=== PATIENT | male | born 1935 | race Caucasian/White ===

== ENCOUNTER 2018-01-14 22:30 | Inpatient (IN) | payer MEDICARE ==
[~2018-01-14 22:30] MED LIST: Aminocaproic Acid 5 GM/20 ML VIAL ONE; Calcium Chloride 1 GM/10 ML Abboject SYRINGE ONE; Cardioplegic Soln 1,000 ML BAG ONE; Heparin 30,000 units/30 ml VIAL ONE; Heparin 5,000 UNITS/ML VIAL ONE; Lidocaine 2% PF 100 mg/5 ml Syringe ONE; Magnesium 5 GM/10 ML VIAL ONE; Nitroglycerin 50 MG/250 ML BOT ONE; Norepinephrine 4 MG/4 ML VIAL ONE; Papaverine 60 MG/2 ML VIAL ONE; Potassium Chloride 60 MEQ/30 ML VIAL ONE; Protamine Sulfate 250 MG/25 ML VIAL ONE; Sodium Bicarb 50 MEQ/50 ML VIAL ONE; Thrombin 5000 UNITS/5 ML VIAL ONE
[2018-01-14] MEDS ORDERED: Nitroglycerin 2% Ointment 1 INCH/1 GM Packet ONE (22:41)
--- NOTE | 2018-01-14 22:49 | RAD ---
SINGLE VIEW OF THE CHEST: 01/14/18 COMPARISON: 02/14/17 HISTORY: Chest pain that began this evening. FINDINGS: Single view of the chest shows a normal sized cardiomediastinal silhouette. There is no evidence of c onsolidation, mass, or pleural effusion. The bones are unremarkable. IMPRESSION: No evidence of acute cardiopulmonary disease. POS: [facility]
[2018-01-14 22:54] LABS: #Eosinphils 0.3 thou/uL (0.0-0.7); #Lymphocytes 1.3 thou/uL (1.20-3.40); #Monocytes 0.8 thou/uL (0.11-0.59); #Neutrophils 7.1 thou/uL (1.40-6.50); %Basophils 0.3 % (0.0-1.0); %Eosinophils 3.3 % (0.0-10.0); %Lymphocytes 13.5 % (21.0-51.0); %Monocytes 8.3 % (0.0-10.0); %Neutrophils 74.6 % (42.0-75.0); Hemoglobin 13.9 g/dL (14.0-18.0); Mean Corpuscular HGB CONC 34.7 g/dL (32.0-36.0); Mean Corpuscular Hemoglobin 31.6 pg (27.0-31.0); Platelet Count 160 thou/uL (130-400); RBC Distribution Width 11.5 % (11.5-14.5); Red Blood Cell (RBC) Count 4.39 mill/uL (4.70-6.10); White Blood Cell (WBC) Count 9.6 thou/uL (4.8-10.8)
[2018-01-14 23:13] LABS: ALT (SGPT) Less than 7 U/L (8-55); AST (SGOT) 15 U/L (5-34); Alkaline Phosphatase 85 U/L (40-150); Anion Gap 14 mmol/L (10-20); BUN (Urea Nitrogen) 14 mg/dL (8.4-25.7); Bilirubin, Total 0.4 mg/dL (0.2-1.2); CK (CPK) 125 U/L (30-200); Calc. Creatinine Clearance 0 mL/min (70-130); Calcium 9.9 mg/dL (7.8-10.44); Carbon Dioxide 22 mmol/L (23-31); Chloride 105 mmol/L (98-107); Estimated GFR-MDRD 70; Globulin 2.7 g/dL (2.4-3.5); Glucose 290 mg/dL (83-110); Lipase 35 U/L (8-78); Magnesium 1.9 mg/dL (1.6-2.6); Potassium 3.9 mmol/L (3.5-5.1); Protein, Total 6.7 g/dL (5.8-8.1); Sodium 137 mmol/L (136-145)
[2018-01-14 23:16] LABS: CKMB 4.7 ng/mL (0-6.6)
[2018-01-14 23:18] LABS: Bilirubin Negative (Negative); Blood, Urine Negative (Negative); Clarity CLEAR (Clear); Glucose, Urine (Dipstick) >=1000 mg/dL (Negative); Leukocyte Negative (Negative); Nitrite Negative (Negative); Protein, Urine (Dipstick) Negative (Neg-Trace); Specific Gravity, Urine 1.015 (1.002-1.036); Urobilinogen 0.2 mg/dL (0.2-1.0); pH, Urine 7.5 (5.0-9.0)
[2018-01-14 23:22] LABS: Troponin I 0.578 ng/mL (< 0.028)
[2018-01-14] MEDS ORDERED: Enoxaparin Sodium 80 MG/0.8 ML SYRINGE ONE (23:48)
[2018-01-15 02:42] LABS: Troponin I 9.368 ng/mL (< 0.028)
[2018-01-15 05:42] LABS: Troponin I 21.042 ng/mL (< 0.028)
[2018-01-15] MEDS ORDERED: Lidocaine 1% (PF) 30 ML VIAL ONE (07:13)
[2018-01-15] MEDS ORDERED: Aggrastat 12.5 MG/250 ML 250 ML ONE (08:01)
[2018-01-15] MEDS ORDERED: Dexmedetomidine 200 MCG/2 ML VIAL ONE (08:13)
[2018-01-15] MEDS ORDERED: Midazolam HCl 5 mg/5 ml Vial ONE (08:13)
[2018-01-15] MEDS ORDERED: Fentanyl 100 MCG/2 ML VIAL ONE (08:13)
[2018-01-15] MEDS ORDERED: Vecuronium 10 MG VIAL ONE (08:13)
[2018-01-15] MEDS ORDERED: Nitroglycerin 100MG/250ML BOT IV SCH (09:00)
[2018-01-15] MEDS ORDERED: Nitroglycerin 2% Ointment 1 INCH/1 GM Packet TOP SCH (09:00)
[2018-01-15] MEDS ORDERED: Aggrastat 12.5 MG/250 ML 250 ML IVPB SCH (09:00)
[2018-01-15] MEDS ORDERED: Sodium Chloride 0.9% 1,000 ML IV SCH (09:00)
[2018-01-15] MEDS ORDERED: Prevnar 13-Val Conj/PF 0.5 ML SYRINGE IM ONE (09:00)
--- NOTE | 2018-01-15 09:12 | CON ---
DATE OF CONSULTATION: 01/15/2018 CARDIOLOGY CONSULTATION REASON FOR CONSULTATION: Non-STEMI. HISTORY OF PRESENT ILLNESS: Mr. Thomson is a pleasant 82-year-old white gentleman who comes to the ospital for chest pain started yesterday at 4:00 p.m., came in by EMS. There were some ST changes on the EKG suggestive of global process. He had Q's in the inferior waves which were new. He was admi tted and troponin up trended overnight. He was pain free yesterday evening. This morning, he again had episode of chest pain about 6:00 a.m. in the upper chest and troponins have bumped to 21, so I ca me in emergently to see him at that time because he was having ongoing pain and elevated troponins an d I brought him down to the catheterization lab in an emergent fashion. He was found to have severe multivessel disease. His culprit vessel was the right coronary artery with a thrombus in the mid ves swetha. This is nonocclusive and actually there is flow past the vessel secondary to this. Dr. Thad arguelles CT Surgery was called and saw the films emergently. We decided to wait until tomorrow to cool hi m off a little and then do this tomorrow morning in a more controlled setting. Currently, at the end of heart catheterization, he is chest pain free. PAST MEDICAL HISTORY: 1. Hypertension. 2. Hyperlipidemia. 3. Type 2 diabetes. 4. Parkinson's disease. PAST SURGICAL HISTORY: Hernia repair. SOCIAL HISTORY: Drinks socially a glass of wine a week. No drug use. No smoking history. OUTPATIENT MEDICATIONS: 1. Carbidopa/levodopa. 2. Losartan 25 mg twice a day. 3. Glipizide 10 mg a day. 4. Hydrochlorothiazide 12.5 mg a day. 5. Metformin 500 mg daily. 6. Calcium with vitamin D. 7. Atorvastatin 40 mg a day. 8. Donepezil 5 mg a day. 9. Aspirin 81 a day. ALLERGIES: No known drug allergies. FAMILY HISTORY: Noncontributory. REVIEW OF SYSTEMS: A 12 point review of systems was done and it is all negative unless stated in the history of present illness. PHYSICAL EXAMINATION: VITAL SIGNS: Temperature 97.7, pulse 65, respiration rate 17, satting 98% on 2 liters, blood pressur e 138/68. GENERAL: Awake, alert and oriented x3, no distress. HEENT: Normocephalic, atraumatic. NECK: Supple. LUNGS: Clear. CARDIOVASCULAR: S1 and S2, no S3, S4, no murmurs. ABDOMEN: Soft, positive bowel sounds. EXTREMITIES: No edema. SKIN: Warm and dry. LABORATORY DATA: Laboratory work was reviewed. White count of 9, hemoglobin of 13.9, hematocrit of 40 and platelet count of 160. Chemistries were reviewed and unremarkable. GFR was 70, troponin init ially at 0.5, then 9.3, now 21, CK-MB 4.7 on admission. Lipase normal and albumin of 4.0. UA was un remarkable. IMAGING DATA: EKG was reviewed, which shows Q-waves in the inferior leads. There is about 0.5 mm to [address] elevation in the inferior leads with high lateral reciprocal changes. Chest x-ray, no evidence of acute cardiopulmonary disease. ASSESSMENT AND PLAN: 1. Non-ST elevation myocardial infarction. 2. Multivessel coronary artery disease. 3. Type 2 diabetes. 4. Hypertension. 5. Hyperlipidemia. PLAN: 1. Currently, best way to revascularize is with bypass surgery. He is currently pain free. Dr. Harriet gonzalez has already reviewed the films and plan is to perform this tomorrow morning. 2. We will start Aggrastat with aspirin for dual antiplatelet therapy. 3. Continue subcu Lovenox for full anticoagulation. 4. We will transfer to the ICU for closer monitoring. 5. Continue statin and aspirin. Thank you for letting us to participate in the care of your patient. We will follow. Over 30 minutes of critical care time were delivered at bedside.
[2018-01-15] MEDS ORDERED: Aspirin 325 MG TAB PO SCH (09:15)
[2018-01-15] MEDS ORDERED: Morphine 4 MG/ML VIAL SLOW IVP PRN (09:15)
[2018-01-15] MEDS ORDERED: Communication Order-Pharmacy FS ONE (09:26)
[2018-01-15] MEDS ORDERED: Nitroglycerin 50 MG/250 ML BOT IVPB SCH (09:30)
[2018-01-15 09:44] LABS: Hemoglobin A1c 7.1 % (4.0-6.0)
--- NOTE | 2018-01-15 11:25 | CON ---
DATE OF CONSULTATION: 01/15/2018 HISTORY OF PRESENT ILLNESS: This is an 82-year-old gentleman, who has been having chest pain for the previous month. He had some discomfort about 12 hours prior to admission that he described as mild; however, became more severe and he presented to the emergency room on around midnight. The followin g morning, he was noted to have a troponin I and was taken to the [facility] for catheterization, which showed triple vessel disease. Left ventricular systolic function appeared overall intact. The anthony ent was not having any chest discomfort at the time of completion of the catheterization. He does soni ve a history of diabetes mellitus, dyslipidemia, hypertension, and Parkinson's disease. He lives in assisted living. He is single. PAST SURGICAL HISTORY: Includes only a hernia repair. MEDICATIONS: Prior to admission included pantoprazole 40 a day, Sinemet 4.5 tablets p.o. t.i.d., asp irin 81 a day, Lipitor 40 at bedtime, hydrochlorothiazide 12.5 a day, Aricept 5 mg at bedtime, glipiz michael 10 mg a day, losartan 25 b.i.d., and metformin 500 every morning. ALLERGIES: None known. PHYSICAL EXAMINATION: VITAL SIGNS: Beverley 511, weight 169. Blood pressure 130/70, heart rate 70. NECK: No carotid bruits. LUNGS: Clear to auscultation. CARDIAC: Regular rate and rhythm. No murmurs. ABDOMEN: Soft, nontender. EXTREMITIES: He has palpable pedal pulses with no peripheral edema. Potential targets include the distal right coronary artery. The PDA is diffusely diseased and too sm all to graft. The circumflex system has a proximal lesion prior to two obtuse marginals, the first o f which has about a 60% stenosis and it is bypassable and possibly the second OM. The LAD is diffuse ly and severely diseased proximally and then at the takeoff of the diagonal, there is some severe shaina nosis involving both of these vessels. There may be some calcification in the distal LAD, but the LA D diagonal appeared to be targets. PLAN: At this time is for coronary bypass grafting tomorrow and informed consent has been obtained.
[2018-01-15] MEDS ORDERED: Iopamidol 370 76% 100 ML VIAL ONE (12:09)
[2018-01-15 12:10] LABS: #Eosinphils 0.2 thou/uL (0.0-0.7); #Lymphocytes 0.9 thou/uL (1.20-3.40); #Monocytes 0.9 thou/uL (0.11-0.59); #Neutrophils 8.3 thou/uL (1.40-6.50); %Basophils 0.4 % (0.0-1.0); %Eosinophils 1.8 % (0.0-10.0); %Lymphocytes 8.9 % (21.0-51.0); %Monocytes 8.5 % (0.0-10.0); %Neutrophils 80.3 % (42.0-75.0); Mean Corpuscular HGB CONC 34.3 g/dL (32.0-36.0); Mean Corpuscular Volume 90.4 fl (80.0-94.0); Platelet Count 168 thou/uL (130-400); RBC Distribution Width 11.6 % (11.5-14.5); Red Blood Cell (RBC) Count 4.19 mill/uL (4.70-6.10); White Blood Cell (WBC) Count 10.3 thou/uL (4.8-10.8)
[2018-01-15 12:33] LABS: Troponin I 41.696 ng/mL (< 0.028)
[2018-01-15] MEDS ORDERED: Enoxaparin Sodium 80 MG/0.8 ML SYRINGE SC SCH ×2 (13:45→21:00)
[2018-01-15] MEDS ORDERED: Enoxaparin Sodium 40 MG/0.4 ML SYRINGE SC SCH (13:45)
[2018-01-15 15:12] LABS: #Eosinphils 0.1 thou/uL (0.0-0.7); #Neutrophils 8.3 thou/uL (1.40-6.50); %Basophils 0.1 % (0.0-1.0); %Lymphocytes 9.1 % (21.0-51.0); %Monocytes 9.8 % (0.0-10.0); Hemoglobin 12.8 g/dL (14.0-18.0); Mean Corpuscular HGB CONC 34.2 g/dL (32.0-36.0); Mean Corpuscular Hemoglobin 30.8 pg (27.0-31.0); Mean Platelet Volume 6.6 fL (7.4-10.4); Platelet Count 170 thou/uL (130-400); RBC Distribution Width 11.5 % (11.5-14.5); Red Blood Cell (RBC) Count 4.16 mill/uL (4.70-6.10); White Blood Cell (WBC) Count 10.4 thou/uL (4.8-10.8)
[2018-01-15] MEDS ORDERED: Losartan 25 MG TAB PO SCH (15:15)
[2018-01-15] MEDS: Carbidopa/Levodopa 25-100 mg Tablet PO SCH ×2 (15:33→20:47)
[2018-01-15] MEDS ORDERED: Hydrochlorothiazide 25 MG TAB PO SCH (16:15)
--- NOTE | 2018-01-15 17:01 | HP ---
DATE OF ADMISSION: 01/15/2018 PRIMARY CARE PHYSICIAN: Dr. Benitez Fine CHIEF COMPLAINT: Chest pain. HISTORY OF PRESENT ILLNESS: This is an 82-year-old male patient of Dr. Benitez Fine with a history of hypertension, Parkinson's, hyperlipidemia, type 2 diabetes who presented to the emergency [facility] last night with complaints of chest pain. The patient states that the pain started about 4:00 p.m . and progressively worsened and presented to the emergency department, found to have slightly elevat ed cardiac enzymes and abnormal EKG. Throughout the night of troponins, continued to elevate, his pa in persisted and Dr. Laura was noted this morning and had a cardiac catheterization early this morni ng which was globally abnormal. Of note, the family states that he has had about 1 week of worsening orthopnea where he gets short of breath when he lay down. The family thought it was reflux and he w as started on proton pump inhibitor with little relief of his symptoms. Symptoms persisted and so he developed chest pain yesterday which eventually brought him to the emergency department for evaluati on. PAST MEDICAL HISTORY: Hypertension, hyperlipidemia, type 2 diabetes, Parkinson's. PAST SURGICAL HISTORY: Hernia repair. MEDICATIONS: Include losartan 25 mg b.i.d., glipizide 10 mg daily, hydrochlorothiazide 12.5 mg daily , metformin 500 mg daily, atorvastatin 40 mg daily, donepezil 5 mg daily, carbidopa/levodopa daily, a spirin 81 mg daily. ALLERGIES: None known. FAMILY HISTORY: Positive for siblings with heart disease as well as nephews with heart disease. SOCIAL HISTORY: He lives at [facility]. He quit smoking back in 1972. No alcohol, no drug use. REVIEW OF SYSTEMS: As per the history of present illness. GENERAL: Denies any recent fevers, chills or recent illness. HEENT: No headache, visual or hearing changes. CARDIAC: As per the history of present illness. PULMONARY: Positive cough from lisinopril. GASTROINTESTINAL: No nausea, vomiting, abdominal pain, melena, hematochezia. GENITOURINARY: No dysuria or hematuria. NEUROLOGIC: Positive tremor from Parkinson's. PHYSICAL EXAMINATION: VITAL SIGNS: Temperature 98.4, pulse 85, respirations 17-22, blood pressure 176/78, pulse ox 97% on room air. GENERAL: He is awake and alert, in no acute distress. Speech is clear. NECK: Supple, no JVD, adenopathy or bruits. HEART: Regular rate and rhythm with no murmurs. LUNGS: Clear. No wheeze, rales or rhonchi. ABDOMEN: Soft, nontender, nondistended. EXTREMITIES: No clubbing, cyanosis or edema, 2+ peripheral pulses bilaterally. LABORATORY DATA: White blood cell count 10.4 thousand, hemoglobin hematocrit 12.8 and 37.4, platelet s of 170. Sodium 137, potassium 3.9, chloride 105, CO2 22, BUN and creatinine 14 and 1.02 with a GFR of 70. Serum glucose was 290. Accu-Cheks 138, 127, AST and ALT are normal. Troponin I initially w as 0.578, next was 9.368, next was 21.04, and next was 41.69. Echocardiogram is pending. Chest x-ra y revealed no evidence of acute cardiopulmonary disease. Again, slab puller revealed abnormal LAD with 90% stenosis. The mid LAD, left circumflex with 70% stenosis, RCA with 99% stenosis. ASSESSMENT AND PLAN: 1. This is an 82-year-old gentleman with multiple medical problems including hypertension, hyperlipi demia, type 2 diabetes, now with a 5-vessel coronary artery disease on heart catheterization. Dr. Jackeline kirkpatrick following. He has planned on 4-5 vessel bypass tomorrow by Dr. Oneil. 2. Type 2 diabetes. We will continue insulin sliding scale while he is n.p.o. 3. Hypertension. I will monitor closely. Dr. Laura adjusting his medications. 5. Parkinson's. We will continue his oral medications and follow closely.
[2018-01-15] MEDS ORDERED: Atorvastatin Calcium 40 MG TAB PO SCH (21:00)
[2018-01-15 21:04] LABS: #Eosinphils 0.2 thou/uL (0.0-0.7); #Lymphocytes 1.3 thou/uL (1.20-3.40); #Monocytes 1.3 thou/uL (0.11-0.59); #Neutrophils 7.4 thou/uL (1.40-6.50); %Basophils 0.1 % (0.0-1.0); %Eosinophils 2.3 % (0.0-10.0); %Lymphocytes 12.5 % (21.0-51.0); %Monocytes 12.3 % (0.0-10.0); %Neutrophils 72.7 % (42.0-75.0); Hemoglobin 13.5 g/dL (14.0-18.0); Mean Corpuscular HGB CONC 33.7 g/dL (32.0-36.0); Mean Corpuscular Hemoglobin 30.8 pg (27.0-31.0); Mean Corpuscular Volume 91.4 fl (80.0-94.0); Mean Platelet Volume 6.6 fL (7.4-10.4); Platelet Count 178 thou/uL (130-400); RBC Distribution Width 11.7 % (11.5-14.5); Red Blood Cell (RBC) Count 4.38 mill/uL (4.70-6.10); White Blood Cell (WBC) Count 10.2 thou/uL (4.8-10.8)
[2018-01-16] MEDS ORDERED: Enoxaparin Sodium 80 MG/0.8 ML SYRINGE SC SCH
[2018-01-16] MEDS: Carbidopa/Levodopa 25-100 mg Tablet PO SCH ×3 (04:05→21:14)
[2018-01-16 04:06] LABS: #Eosinphils 0.3 thou/uL (0.0-0.7); #Lymphocytes 1.1 thou/uL (1.20-3.40); #Neutrophils 5.7 thou/uL (1.40-6.50); %Eosinophils 3.2 % (0.0-10.0); %Lymphocytes 13.5 % (21.0-51.0); %Monocytes 12.4 % (0.0-10.0); %Neutrophils 70.8 % (42.0-75.0); Hemoglobin 12.7 g/dL (14.0-18.0); Mean Corpuscular HGB CONC 34.5 g/dL (32.0-36.0); Mean Corpuscular Hemoglobin 31.3 pg (27.0-31.0); Mean Corpuscular Volume 90.7 fl (80.0-94.0); Mean Platelet Volume 6.8 fL (7.4-10.4); Platelet Count 168 thou/uL (130-400); RBC Distribution Width 11.8 % (11.5-14.5); Red Blood Cell (RBC) Count 4.05 mill/uL (4.70-6.10); White Blood Cell (WBC) Count 8.1 thou/uL (4.8-10.8)
[2018-01-16 04:15] LABS: ALT (SGPT) Less than 7 U/L (8-55); AST (SGOT) 35 U/L (5-34); Albumin 3.7 g/dL (3.4-4.8); Alkaline Phosphatase 70 U/L (40-150); Anion Gap 11 mmol/L (10-20); BUN (Urea Nitrogen) 11 mg/dL (8.4-25.7); Bilirubin, Total 0.9 mg/dL (0.2-1.2); Calc. Creatinine Clearance 92 mL/min (70-130); Calcium 9.4 mg/dL (7.8-10.44); Carbon Dioxide 27 mmol/L (23-31); Chloride 104 mmol/L (98-107); Estimated GFR-MDRD Greater than 90; Globulin 2.5 g/dL (2.4-3.5); Glucose 136 mg/dL (83-110); Potassium 3.8 mmol/L (3.5-5.1); Protein, Total 6.2 g/dL (5.8-8.1); Sodium 138 mmol/L (136-145)
[2018-01-16] MEDS ORDERED: Heparin 10,000 UNITS/1 ML VIAL 30,000 UNITS in Sodium Chloride 0.9% 1,000 ML FS SCH (06:30)
[2018-01-16] MEDS ORDERED: Fentanyl 250 MCG/5 ML VIAL ONE ×2 (06:38)
[2018-01-16] MEDS ORDERED: Midazolam HCl 5 mg/5 ml Vial ONE (06:38)
[2018-01-16] MEDS ORDERED: Vecuronium 10 MG VIAL ONE ×2 (06:39→16:11)
[2018-01-16] MEDS ORDERED: Dexmedetomidine 200 MCG/2 ML VIAL ONE (06:39)
[2018-01-16] MEDS ORDERED: Albumin 5% 500 ML ONE (06:50)
[2018-01-16] MEDS ORDERED: Aspirin 325 MG TAB PO SCH (09:00)
[2018-01-16] MEDS ORDERED: PHENYLEPHRINE-NS 100 MCG/ML 10 ML SYRINGE ONE ×2 (09:37→16:11)
[2018-01-16] MEDS ORDERED: Insulin Regular 300 UNITS/3 ML VIAL ONE (09:37)
[2018-01-16] MEDS ORDERED: Bisacodyl 5 MG TAB PO PRN (11:43)
[2018-01-16] MEDS ORDERED: Post-Op Insulin Drip Protocol IVPB ONE (11:43)
[2018-01-16] MEDS ORDERED: Ondansetron HCl/PF 4 MG/2 ML Vial IVP PRN (11:43)
[2018-01-16] MEDS ORDERED: Phenylephrine 10 MG/NS 250 ML 250 ML IVPB PRN (11:43)
[2018-01-16] MEDS ORDERED: Fentanyl 100 MCG/2 ML VIAL SLOW IVP PRN ×2 (11:43)
[2018-01-16] MEDS ORDERED: DOPamine 400 MG/D5W 250 ML 250 ML IVPB PRN (11:43)
[2018-01-16] MEDS ORDERED: Morphine 4 MG/ML VIAL SLOW IVP PRN (11:43)
[2018-01-16] MEDS ORDERED: Bisacodyl 10 MG SUPP PR PRN (11:43)
[2018-01-16] MEDS ORDERED: niCARdipine HCl 25 MG in Sodium Chloride 0.9% 250 ML 240 ML IVPB PRN (11:43)
[2018-01-16] MEDS ORDERED: Nitroglycerin 50 MG/250 ML BOT 250 ML IVPB PRN (11:43)
[2018-01-16] MEDS ORDERED: Acetaminophen 325 MG TAB PO PRN (11:43)
[2018-01-16] MEDS ORDERED: Mag-Al 1200 mg/1200 mg/30 ML UDCUP PO PRN (11:43)
[2018-01-16] MEDS ORDERED: Hetastarch 6% 500 ML 500 ML IVPB PRN (11:43)
[2018-01-16] MEDS ORDERED: Guaifenesin DM 100-10/5 ML UDCUP PO PRN (11:43)
[2018-01-16] MEDS ORDERED: hydrALAZINE 20 MG/ML VIAL SLOW IVP PRN (11:43)
[2018-01-16] MEDS ORDERED: Norepinephrine 8 MG/0.9% NS 250 ML IVPB PRN (11:43)
[2018-01-16] MEDS ORDERED: HYDROcodone/Acetaminophen 5/325 mg Tablet PO PRN (11:43)
[2018-01-16] MEDS ORDERED: Potassium Chloride 20 MEQ/100 ML PREMIX BAG IVPB PRN (11:43)
[2018-01-16 11:44] LABS: pH, Arterial 7.38 (7.35-7.45)
[2018-01-16 11:45] LABS: ALV-art Gradient 289.275 (0-20); Actual Bicarbonate (HCO3a) 22.7 mEq/L (22-26); Base Excess (BEa) -2.2 mEq/L (0 (+/-) 2.5); CO2 Tension 39.7 mmHg (35.0-45.0); Calcium, Ionized 1.1 mmol/L (1.12-1.30); Hematocrit-ABG 31.7 % (42.0-52.0); Hemoglobin (Hb) 10.7 g/dL (14.0-18.0); O2 Tension (PaO2) 88.9 mmHg (80.0-100.0); Puncture Site LINE
[2018-01-16] MEDS ORDERED: Magnesium 2 GM/NS 0.9% 100 ML 2 GM in Premix Bag 1 BAG IVPB SCH (11:45)
--- NOTE | 2018-01-16 11:47 | OP ---
PREOPERATIVE DIAGNOSES: Coronary artery disease, status post inferior myocardial infarction. POSTOPERATIVE DIAGNOSES: Coronary artery disease, status post inferior myocardial infarction. PROCEDURE: Coronary artery bypass graft x4, good quality saphenous vein to a 1.5-2 mm right posterol ateral at its origin. Good quality saphenous vein to a 1.5 mm diagonal and a 1.5 mm OM1. HILTON, good quality to a 1.25-1.5 mm LAD. SURGEON: Jadon Oneil M.D. SENIOR [employer]UTIONS CONSULTANT: Rad Terrell M.D. TRANSFUSION: None. PROCEDURE IN DETAIL: After adequate anesthesia had been obtained, the patient was prepped and draped . Dr. Terrell did an endovascular vein harvest of the left greater saphenous vein from groin to just below the knee while I performed a median sternotomy. Left internal mammary artery was harveste d, divided distally after heparinization and treated with papaverine. Following this, it was passed posterior to the thymus gland through an incision in the pericardium. Traction sutures were placed i n the pericardium. After opening it, aorta and right atrium cannulated and cardiopulmonary bypass be gun. Aorta was cross-clamped and a liter of cold blood cardioplegia given through the aortic root. The right coronary artery including the PDA were heavily calcified to palpation and the posterolatera l was opened just at its origin. Saphenous vein anastomosis completed here. Following this, the add itional 3 anastomoses were completed. The distal obtuse marginal was a bifurcated system and felt to be too small to graft. Following completion of the distal anastomosis, the cross-clamp was removed, partial occluding clamp placed, and 3 proximal anastomoses performed on the aortic root and marked w ith rings. The patient was then weaned from cardiopulmonary bypass, cannulas removed, and protamine given systemically. Aortic cannulation site was secured with an additional 4-0 Prolene suture. Medi astinal drains x2 were placed, following which the sternum was reapproximated with #7 interrupted wir e using vancomycin paste on the sternal edges, platelet rich blood, and platelet-poor plasma. Subcut aneous tissue and skin were closed in layers and the patient is to be taken to the ICU in guarded con dition.
[2018-01-16] MEDS ORDERED: Dextrose 5% in Water 1,000 ML IV PRN (11:52)
[2018-01-16] MEDS ORDERED: Dextrose 50% Abboject 50 ML SYRINGE SLOW IVP PRN (11:52)
[2018-01-16] MEDS ORDERED: Insulin Regular 300 UNITS/3 ML VIAL SC PRN (11:52)
[2018-01-16] MEDS: Lactated Ringer's 1,000 ML IV SCH (11:55)
[2018-01-16] MEDS: Ketorolac Tromethamine 30 MG/ML VIAL IVP SCH ×2 (11:56→17:02)
--- NOTE | 2018-01-16 12:08 | RAD ---
PORTABLE CHEST: History: Post op open heart surgery. Comparison: 01-14-18 FINDINGS: Endotracheal tube is in satisfactory position. Right subclavian line is present. Catheter tip overlyi ng the superior vena cava. Heart size is within normal limits. There are post op sternotomy changes. The lungs are clear of infiltrates. No signs of pneumothorax. IMPRESSION: Post op sternotomy change. POS: [facility]
[2018-01-16 12:10] LABS: #Eosinphils 0.2 thou/uL (0.0-0.7); #Lymphocytes 0.6 thou/uL (1.20-3.40); #Monocytes 0.7 thou/uL (0.11-0.59); #Neutrophils 9.5 thou/uL (1.40-6.50); %Basophils 0.4 % (0.0-1.0); %Eosinophils 1.9 % (0.0-10.0); %Lymphocytes 5.7 % (21.0-51.0); %Neutrophils 86.1 % (42.0-75.0); Hemoglobin 11.1 g/dL (14.0-18.0); Mean Corpuscular HGB CONC 33.9 g/dL (32.0-36.0); Mean Corpuscular Hemoglobin 31.1 pg (27.0-31.0); Mean Corpuscular Volume 91.6 fl (80.0-94.0); Mean Platelet Volume 6.6 fL (7.4-10.4); Platelet Count 115 thou/uL (130-400); RBC Distribution Width 11.5 % (11.5-14.5); Red Blood Cell (RBC) Count 3.59 mill/uL (4.70-6.10)
[2018-01-16 12:11] LABS: Band 18 % (5-11); Lymphocytes 7 % (21-51); MDiff Complete? YES; Monocytes 3 % (0-10); Myelocyte 1 % (0-0); Neutrophil 71 % (42-75); PLT Morphology Comment Appears Decreased; RBC Morphology Normal
[2018-01-16 12:43] LABS: INR-International Normal Ratio 1.4; PTT 32.5 SEC (22.9-36.1); Prothrombin Time 16.9 SEC (12.0-14.7)
[2018-01-16 12:48] LABS: Anion Gap 9 mmol/L (10-20); BUN (Urea Nitrogen) 11 mg/dL (8.4-25.7); Calc. Creatinine Clearance 97 mL/min (70-130); Calcium 7.7 mg/dL (7.8-10.44); Carbon Dioxide 22 mmol/L (23-31); Chloride 110 mmol/L (98-107); Estimated GFR-MDRD Greater than 90; Glucose 163 mg/dL (83-110); Potassium 3.9 mmol/L (3.5-5.1); Sodium 137 mmol/L (136-145)
[2018-01-16] MEDS ORDERED: Potassium Chloride 20 MEQ, Admixture Fee 1 EACH in Sodium Chloride 0.9% 100 ML IVPB SCH (13:00)
--- NOTE | 2018-01-16 13:22 | PDOC.CTH ---
Cardiology Progress Note - Subjective He had a 4 vessel CABG earlier today. he is currently still intubated and sedated but is doing well. - Objective Vital Signs Temp Pulse Resp Pulse Ox 01/16/18 13:12 54 L 01/16/18 12:00 97.5 F L 12 99 01/16/18 11:34 66 01/16/18 07:00 97.8 F 67 18 98 01/16/18 05:00 97.8 F Weight 167 lb 1.766 oz 01/15/18 01/16/18 01/17/18 06:59 06:59 06:59 Intake Total 1580 350 Output Total 1725 235 Balance -145 115 - Physical Examination General/Neuro: alert & oriented x3, NAD Neck: no JVD present Lungs: CTA, unlabored respirations Heart: RRR Abdomen: NT/ND Extremities: + edema B (1+) - Telemetry Telemetry Rhythm: NSR - Labs Result Diagrams: 01/16/18 11:39 01/16/18 11:39 Troponin/CKMB CK-MB (CK-2) 4.7 ng/mL (0-6.6) 01/14/18 22:42 Troponin I 41.696 ng/mL (< 0.028) H* 01/15/18 11:59 - Assessment/Plan 1. s/p CABG x 4. HILTON to LAD, SVG to RPDA, SVG to OM, SVG to diagonal. 2. Multivessel CAD. 3. NSTEMI 4. T2DM 5. HTN PLAN: - Continue supportive care. - Aspirin and statin for life. - BB and ACEI/ARB once BP allows.
[2018-01-16] MEDS: CEFAZOLIN/Water 2 GM/20 ML SYRINGE SLOW IVP SCH ×2 (13:42→22:11)
[2018-01-16] MEDS ORDERED: Phenylephrine HCL 10 MG, Admixture Fee 1 EACH in Sodium Chloride 0.9% 250 ML 250 ML IV SCH (13:45)
[2018-01-16] MEDS ORDERED: PROPOFOL 200 MG/20 ML VIAL ONE (16:11)
[2018-01-16 16:31] LABS: CO2 Tension 38.6 mmHg (35.0-45.0); pH, Arterial 7.36 (7.35-7.45)
[2018-01-16 16:32] LABS: Actual Bicarbonate (HCO3a) 21.1 mEq/L (22-26); Base Excess (BEa) -4.1 mEq/L (0 (+/-) 2.5); Calcium, Ionized 1.2 mmol/L (1.12-1.30); Hematocrit-ABG 31.8 % (42.0-52.0); Hemoglobin (Hb) 10.7 g/dL (14.0-18.0); O2 Tension (PaO2) 74.7 mmHg (80.0-100.0); Puncture Site LINE
[2018-01-16 17:07] LABS: Hemoglobin 10.9 g/dL (14.0-18.0)
--- NOTE | 2018-01-16 17:16 | PRG ---
DATE OF SERVICE: 01/16/2018 SUBJECTIVE: Mr. Thomson is status post coronary artery bypass graft. He is still intubated. His da ughter is at his bedside. It is noted he is waking up. OBJECTIVE: VITAL SIGNS: He is afebrile. Blood pressure is 103/55. LUNGS: Clear. HEART: Reveals no murmur. IMPRESSION: 1. Atherosclerotic coronary artery disease. 2. History of swallowing difficulties manifested by weakness of the intrinsic muscles with swallowin g. 3. Voice weakness, I believe, probably secondary to Parkinson disease. PLAN: I have apprised the patient's family of his need for probable extended care after bypass. He will probably certainly need to be in a rehab or some type of shelter facility. I have also told him I will be out of town in a few days. We will pass care over to Dr. Broussard. I do anticipa te him being in the hospital for at least 1 week.
[2018-01-16 17:18] LABS: Potassium 4.2 mmol/L (3.5-5.1)
--- NOTE | 2018-01-16 19:14 | EKG ---
Test Reason : STAT Blood Pressure : / mmHG Vent. Rate : 074 BPM Atrial Rate : 074 BPM P-R Int : 186 ms QRS Dur : 088 ms QT Int : 388 ms P-R-T Axes : 074 -61 050 degrees QTc Int : 430 ms Sinus rhythm with Premature atrial complexes Left anterior fascicular block Inferior infarct (cited on or before 14-JAN-2018) Abnormal ECG When compared with ECG of 14-JAN-2018 22:38, (Unconfirmed) Premature atrial complexes are now Present ST more depressed in Lateral leads Nonspecific T wave abnormality, improved in Inferior leads T wave inversion less evident in Lateral leads Confirmed by DEEPA PEDRESON ([id number]) on 01/16/2018 7:14:02 PM Referred By: SAMMIE Confirmed By:DEEPA PEDERSON
[2018-01-16] MEDS ORDERED: Ondansetron ODT 4 MG TAB SL PRN (19:45)
[2018-01-16] MEDS: Famotidine 40 MG/4 ML VIAL SLOW IVP SCH (21:14)
[2018-01-16] MEDS: Simvastatin 20 MG TAB PO SCH (21:15)
[2018-01-17] MEDS: Ketorolac Tromethamine 30 MG/ML VIAL IVP SCH ×4 (00:04→18:46)
[2018-01-17] MEDS: Lactated Ringer's 1,000 ML IV SCH (02:08)
[2018-01-17 04:36] LABS: #Lymphocytes 0.7 thou/uL (1.20-3.40); #Monocytes 1.3 thou/uL (0.11-0.59); #Neutrophils 9.2 thou/uL (1.40-6.50); %Basophils 0.1 % (0.0-1.0); %Eosinophils 0.1 % (0.0-10.0); %Lymphocytes 6.1 % (21.0-51.0); %Monocytes 11.6 % (0.0-10.0); %Neutrophils 82.1 % (42.0-75.0); Hemoglobin 10.1 g/dL (14.0-18.0); Mean Corpuscular Hemoglobin 31.2 pg (27.0-31.0); Mean Corpuscular Volume 91.8 fl (80.0-94.0); Mean Platelet Volume 7.1 fL (7.4-10.4); Platelet Count 133 thou/uL (130-400); RBC Distribution Width 11.5 % (11.5-14.5); Red Blood Cell (RBC) Count 3.23 mill/uL (4.70-6.10); White Blood Cell (WBC) Count 11.2 thou/uL (4.8-10.8)
[2018-01-17 04:54] LABS: Anion Gap 10 mmol/L (10-20); BUN (Urea Nitrogen) 19 mg/dL (8.4-25.7); Calc. Creatinine Clearance 80 mL/min (70-130); Calcium 8.3 mg/dL (7.8-10.44); Carbon Dioxide 25 mmol/L (23-31); Chloride 110 mmol/L (98-107); Estimated GFR-MDRD Greater than 90; Glucose 108 mg/dL (83-110); Potassium 4.1 mmol/L (3.5-5.1); Sodium 141 mmol/L (136-145)
[2018-01-17] MEDS: CEFAZOLIN/Water 2 GM/20 ML SYRINGE SLOW IVP SCH (05:26)
[2018-01-17] MEDS ORDERED: Insulin Detemir 100 UNITS/ML 10 UNITS in Pre-Filled Syringe 1 EACH SC SCH (06:30)
--- NOTE | 2018-01-17 08:30 | PRG ---
DATE OF SERVICE: 01/17/2018 Mr. Thomson is doing well. He is awake and alert. He states he has been able to swallow well. He h as no drooling noted. PHYSICAL EXAMINATION: VITAL SIGNS: Temperature 97.6, BP 119/64. LUNGS: His lungs are clear. HEART: Reveals no murmur. LABORATORY: Hemoglobin 10.1, hematocrit 29.6. Chemistry is normal. Blood sugars are normal as well . IMPRESSION: 1. Status post coronary bypass graft. 2. History of swallowing difficulties. 3. History of Parkinson's disease. 4. History of type 2 diabetes. PLAN: The patient will continue the care of myself, Cardiology as well as Cardiovascular Surgery. I have spoken with Dr. Oneil about the patient's medical condition. He does have some difficulty swal lowing from time to time. This has been addressed in the past. He seems to be doing well. He possi nadine could benefit from possible speech therapy consult. I have also discussed with the family the mell lizzie will probably go to rehab, I believe he can live at [facility] by himself at this point. I ken l be out of town for the next 3 days. will be following the patient for me.
[2018-01-17] MEDS: Carbidopa/Levodopa 25-100 mg Tablet PO SCH ×3 (08:51→20:04)
[2018-01-17] MEDS: Famotidine 40 MG/4 ML VIAL SLOW IVP SCH (08:53)
[2018-01-17] MEDS: Famotidine 20 MG TAB PO SCH ×2 (08:56→20:06)
--- NOTE | 2018-01-17 08:59 | RAD ---
PORTABLE CHEST: Date: 01/17/18 HISTORY: Postop open heart surgery. COMPARISON: Prior day's exam. FINDINGS: Endotracheal tube has been removed. Postop sternotomy changes and right subclavian line are again not ed. Lungs are clear of infiltrates. Minimal atelectatic change in the lung bases. IMPRESSION: Interval removal of the endotracheal tube. Otherwise, relatively stable chest. POS: [facility]
[2018-01-17] MEDS ORDERED: Aspirin 325 MG TAB PO SCH (09:00)
[2018-01-17] MEDS: Insulin Regular 300 UNITS/3 ML VIAL SC PRN ×3 (11:42→21:20)
--- NOTE | 2018-01-17 18:13 | PDOC.CTH ---
Cardiology Progress Note - Subjective He is doing better every day. Sore chest. - Objective Vital Signs Temp Pulse Pulse Pulse Pulse Resp BP 01/17/18 13:35 78 76 81 128/66 01/17/18 12:00 98.3 F 01/17/18 08:00 98 F 87 23 H BP BP Pulse Ox Pulse Ox Pulse Ox 01/17/18 13:35 147/66 H 137/63 97 99 01/17/18 12:00 01/17/18 08:00 100 Weight 159 lb 6.307 oz 01/16/18 01/17/18 01/18/18 06:59 06:59 06:59 Intake Total 1580 1885.2 350 Output Total 1725 1174 370 Balance -145 711.2 -20 - Physical Examination General/Neuro: alert & oriented x3, NAD Neck: no JVD present Lungs: unlabored respirations Heart: RRR Abdomen: NT/ND Extremities: + edema B (1+) - Telemetry Telemetry Rhythm: NSR - Labs Result Diagrams: 01/17/18 03:45 01/17/18 03:45 Troponin/CKMB CK-MB (CK-2) 4.7 ng/mL (0-6.6) 01/14/18 22:42 Troponin I 41.696 ng/mL (< 0.028) H* 01/15/18 11:59 - Assessment/Plan 1. s/p CABG x 4. HILTON to LAD, SVG to RPDA, SVG to OM, SVG to diagonal. 2. Multivessel CAD. 3. NSTEMI 4. T2DM 5. HTN PLAN: - Aspirin and statin for life. - BB and ACEI/ARB once BP allows. Likely tomorrow. - PT as tolerated.
[2018-01-17] MEDS: Simvastatin 20 MG TAB PO SCH (20:06)
[2018-01-18] MEDS: Ketorolac Tromethamine 30 MG/ML VIAL IVP SCH ×2 (00:01→06:01)
[2018-01-18 04:42] LABS: #Eosinphils 0.1 thou/uL (0.0-0.7); #Lymphocytes 0.6 thou/uL (1.20-3.40); #Monocytes 1.1 thou/uL (0.11-0.59); #Neutrophils 6.8 thou/uL (1.40-6.50); %Basophils 0.4 % (0.0-1.0); %Eosinophils 0.8 % (0.0-10.0); %Lymphocytes 6.9 % (21.0-51.0); %Monocytes 13.3 % (0.0-10.0); %Neutrophils 78.7 % (42.0-75.0); Hemoglobin 9.4 g/dL (14.0-18.0); Mean Corpuscular HGB CONC 33.5 g/dL (32.0-36.0); Mean Corpuscular Volume 92.6 fl (80.0-94.0); Mean Platelet Volume 6.9 fL (7.4-10.4); Platelet Count 121 thou/uL (130-400); RBC Distribution Width 11.7 % (11.5-14.5); Red Blood Cell (RBC) Count 3.03 mill/uL (4.70-6.10); White Blood Cell (WBC) Count 8.6 thou/uL (4.8-10.8)
[2018-01-18 04:51] LABS: Anion Gap 8 mmol/L (10-20); BUN (Urea Nitrogen) 28 mg/dL (8.4-25.7); Calc. Creatinine Clearance 82 mL/min (70-130); Calcium 8.5 mg/dL (7.8-10.44); Carbon Dioxide 27 mmol/L (23-31); Chloride 108 mmol/L (98-107); Estimated GFR-MDRD Greater than 90; Glucose 124 mg/dL (83-110); Potassium 3.8 mmol/L (3.5-5.1); Sodium 139 mmol/L (136-145)
[2018-01-18] MEDS ORDERED: Nitroglycerin 0.4 MG TAB (25 Tab Bottle) SL PRN (06:29)
[2018-01-18] MEDS ORDERED: Guaifenesin DM 100-10/5 ML UDCUP PO PRN (06:29)
[2018-01-18] MEDS ORDERED: Mag-Al 1200 mg/1200 mg/30 ML UDCUP PO PRN (06:29)
[2018-01-18] MEDS ORDERED: Bisacodyl 10 MG SUPP PR PRN (06:29)
[2018-01-18] MEDS ORDERED: Mineral Oil ENEMA PR PRN (06:29)
[2018-01-18] MEDS ORDERED: Acetaminophen 325 MG TAB PO PRN (06:29)
[2018-01-18] MEDS ORDERED: Dextrose 50% Abboject 50 ML SYRINGE SLOW IVP PRN (06:50)
[2018-01-18] MEDS ORDERED: Dextrose 5% in Water 1,000 ML IV PRN (06:50)
--- NOTE | 2018-01-18 07:51 | PRG ---
DATE OF SERVICE: 01/18/[address] Benitez Fine while he is out of town. HISTORY OF PRESENT ILLNESS: The patient is status post 4-vessel CABG, has been extubated successfull y and has started tolerating diet. The patient has had a history of dysphagia and baseline Parkinson ism. His tremors appear to be baseline with his Sinemet and the patient states along with nursing st aff that he has been tolerating food and liquid at this point in time. No speech therapy consultatio n has been made at this point. Nursing staff notes that he has had increasing blood sugar, load with initiation of diet and he is requiring sliding scale insulin. He has not had a bowel movement since last Tuesday. Plans for Dulcolax this morning to see if he can start producing bowel movements. The patient has no acute complaints at this point in time. Nursing staff giving the patient sponge bath while he changing dressings. PHYSICAL EXAMINATION: VITAL SIGNS: Temperature 99.6, heart rate of 86, blood pressure 146/77, respiratory rate of 21, oxyg en saturation 96% on room air. GENERAL: The patient is alert, in no acute distress. HEENT: Head is normocephalic, atraumatic. Extraocular movements are intact. Mucosa is moist. NECK: Supple. CARDIOVASCULAR: Regular rate and rhythm at time of exam. Chest wall with dressing intact, drain in place. LUNGS: Clear to auscultation bilaterally. ABDOMEN: Soft, nontender. EXTREMITIES: Lower extremities without cyanosis or edema. Shelton wrap to left lower extremity from vei n harvest site. NEUROLOGIC: The patient is alert and oriented x1 to 2. Speech is normal. No acute deficits. LABORATORY DATA: White blood count 8.6, hemoglobin 9.4, platelet count of 121. Sodium 139, potassiu m of 3.8, chloride 108, BUN of 28, creatinine of 0.72, glucose of 124, range of glucose 124-248 in th e last 12 hours. X-RAY FINDINGS: Read on chest x-ray this a.m. is pending on portable, no apparent infiltrates and pe rihilar congestion on personal review. ASSESSMENT AND PLAN: Status post coronary artery bypass graft 4-vessel, diabetes type 2, Parkinsonis m, dysphagia, constipation. Management per Dr. Oneil's team for postoperative care. Restarting the patient's metformin regarding diabetes as his renal function is intact. We will continue sliding sca le insulin. He received 14 units in the last 24 hours of sliding scale insulin. We will continue hi s Sinemet for his Parkinsonism, tremors appear to be baseline at this point. Regarding his dysphagia , we will continue to monitor the patient's oral intake, took slightly more than 750 oral intake of l iquids yesterday. No choking spells reported per nursing staff. Regarding the patient's constipatio n, scheduled docusate sodium. Nursing staff to give patient p.r.n. Dulcolax. We will see if this pr oduces a bowel movement and may need to move towards suppository or enema if no bowel movements produ demetris. We will continue to follow. The patient continue to work with rehabilitation therapies and pos toperative management. We will continue to follow until Dr. Fine returns.
[2018-01-18] MEDS: metFORMIN 500 MG TAB PO SCH ×2 (08:15→17:14)
[2018-01-18] MEDS: Carbidopa/Levodopa 25-100 mg Tablet PO SCH ×3 (08:16→20:31)
[2018-01-18] MEDS: Docusate 100 MG CAP PO SCH ×2 (08:16→20:33)
[2018-01-18] MEDS: HYDROcodone/Acetaminophen 5/325 mg Tablet PO PRN (08:16)
[2018-01-18] MEDS: Bisacodyl 5 MG TAB PO PRN (08:17)
[2018-01-18] MEDS: Aspirin 325 mg Enteric Coated Tablet PO SCH (08:18)
[2018-01-18] MEDS: Famotidine 20 MG TAB PO SCH ×2 (08:18→20:33)
[2018-01-18] MEDS ORDERED: Polyethylene Glycol 3350 17 GM Packet PO SCH (09:00)
--- NOTE | 2018-01-18 09:05 | RAD ---
PORTABLE CHEST: Date: 01-18-18 Provided Clinical History: Post open heart. Comparison: 01-17-18 FINDINGS: Cardiac and mediastinal silhouette is unchanged in appearance. Median sternotomy changes are again se en. Right sided central line is again noted and in similar position. No focal consolidation, pleural fluid or pneumothorax is apparent. IMPRESSION: Stable radiographic appearance of the chest. POS: [facility]
[2018-01-18] MEDS: Insulin Regular 300 UNITS/3 ML VIAL SC PRN (13:47)
--- NOTE | 2018-01-18 18:19 | PDOC.CTH ---
Cardiology Progress Note - Subjective He is doing well. He has not had a bowel movement yet but is nor complaining of any significant abdominal discomfort. He is passing gas. - Objective Vital Signs Temp Pulse Pulse Pulse Resp BP BP 01/18/18 15:37 99 F 78 18 01/18/18 15:24 84 166/82 H 01/18/18 14:51 87 174/80 H 01/18/18 12:30 98.3 F 93 18 01/18/18 09:50 98.2 F 98 20 01/18/18 09:18 70 117/56 L 01/18/18 08:00 99.9 F H 87 20 01/18/18 07:00 99.9 F H BP BP Pulse Ox 01/18/18 15:37 166/82 H 97 01/18/18 15:24 01/18/18 14:51 01/18/18 12:30 136/71 93 L 01/18/18 09:50 148/70 H 98 01/18/18 09:18 01/18/18 08:00 97 01/18/18 07:00 Weight 164 lb 14.492 oz 01/17/18 01/18/18 01/19/18 06:59 06:59 06:59 Intake Total 1885.2 750 480 Output Total 1174 797 40 Balance 711.2 -47 440 - Physical Examination General/Neuro: alert & oriented x3, NAD Neck: no JVD present Lungs: CTA, unlabored respirations Heart: RRR Abdomen: NT/ND Extremities: + edema B (1+) - Telemetry Telemetry Rhythm: NSR - Labs Result Diagrams: 01/18/18 04:28 01/18/18 04:28 Troponin/CKMB CK-MB (CK-2) 4.7 ng/mL (0-6.6) 01/14/18 22:42 Troponin I 41.696 ng/mL (< 0.028) H* 01/15/18 11:59 - Assessment/Plan 1. s/p CABG x 4. HILTON to LAD, SVG to RPDA, SVG to OM, SVG to diagonal. 2. Multivessel CAD. 3. NSTEMI 4. T2DM 5. HTN PLAN: - Aspirin and statin for life. - Will start BB today. - Will add miralax - PT as tolerated.
[2018-01-18] MEDS ORDERED: Polyethylene Glycol 3350 17 GM Packet PO PRN (18:23)
[2018-01-18] MEDS: Atorvastatin Calcium 40 MG TAB PO SCH (20:32)
[2018-01-18] MEDS: Donepezil HCl 5 MG TAB PO SCH (20:32)
[2018-01-19 05:44] VITALS: BMI 24.0
[2018-01-19] MEDS ORDERED: Potassium Chloride 10 MEQ TAB PO SCH (08:00)
[2018-01-19] MEDS: Losartan 25 MG TAB PO SCH (08:57)
[2018-01-19] MEDS: Carbidopa/Levodopa 25-100 mg Tablet PO SCH ×3 (08:58→20:08)
[2018-01-19] MEDS: Bisacodyl 5 MG TAB PO PRN (08:58)
[2018-01-19] MEDS: Docusate 100 MG CAP PO SCH ×2 (08:59→20:09)
[2018-01-19] MEDS: Aspirin 325 mg Enteric Coated Tablet PO SCH (08:59)
[2018-01-19] MEDS: Carvedilol 3.125 MG TAB PO SCH ×2 (08:59→16:13)
[2018-01-19] MEDS: metFORMIN 500 MG TAB PO SCH ×2 (08:59→16:30)
[2018-01-19] MEDS ORDERED: Furosemide 40 MG TAB PO SCH (09:00)
[2018-01-19] MEDS: Famotidine 20 MG TAB PO SCH ×2 (09:03→20:09)
--- NOTE | 2018-01-19 13:28 | PRG ---
DATE OF SERVICE: 01/19/2018 HISTORY OF PRESENT ILLNESS: The patient transitioned to the telemetry floor without incident. He soni d his drains removed and wounds were cleaned today. No concerns from nursing staff on wound healing. The patient restarted on metformin with improved blood sugars and 16 units of sliding scale insulin used early and then the patient's blood sugars have been controlled since. The patient has been giv en docusate and Dulcolax. At this point in time, he has not produced a bowel movement. Nursing staf f have redosed the patient and we will give him prune juice to know the effect, plan is to give patiyamel nt an enema this evening. The patient has no acute complaints. Verbalizes understanding about trans ition to inpatient rehab soon if accepted. PHYSICAL EXAMINATION: VITAL SIGNS: Temperature 99.7, pulse of 81, respiratory rate of 20, oxygen saturation 93% on room ai r, blood pressure of 149/70. GENERAL: The patient is alert, in no acute distress. HEENT: Head is normocephalic, atraumatic. Extraocular movements are intact. Sclerae are white. Or al mucosa is moist. NECK: Supple. HEART: Regular rate and rhythm. No murmurs auscultated. LUNGS: Clear to auscultation bilaterally. No rubs or wheezes. ABDOMEN: Soft, nontender, positive bowel sounds throughout. EXTREMITIES: Lower extremities without cyanosis or edema. Left lower extremity vein harvest site wi th serous crust. No extending erythema or exudates. Sternal wound with no erythema, exudates, or pa llor extending. LABORATORY DATA: Blood glucoses in the last 12 hours range from 132-222. ASSESSMENT AND PLAN: Status post coronary artery bypass graft, 4-vessel, type 2 diabetes, Parkinsoni sm, dysphagia, constipation. The patient tolerated 1700 oral intake up from previous. Regarding his dysphagia, no choking episodes reported. Improved blood glucose as above with metformin reestablish ed. Once the patient is not on any insulin, may restart sulfonylurea. Details per nursing staff suraj n for use of p.r.n. laxatives and stool softeners for patient's constipation as above. The patient c ontinued on Sinemet. Current plan per Dr. Oneil's team is to transition to inpatient rehabilitation once able in the next 1-2 days. We will continue to follow the patient during the weekday.
[2018-01-19] MEDS: HYDROcodone/Acetaminophen 5/325 mg Tablet PO PRN (14:29)
[2018-01-19] MEDS: Insulin Regular 300 UNITS/3 ML VIAL SC PRN (16:27)
[2018-01-19] MEDS: glipiZIDE 5 MG TAB PO SCH (16:30)
--- NOTE | 2018-01-19 18:25 | PDOC.CTH ---
Cardiology Progress Note - Subjective He is doing well. He has been walking with PT and OT and feeling well. He has not had a BM but is passing gas and does not feel bloated. - Objective Vital Signs Temp Pulse Pulse Pulse Resp BP BP 01/19/18 16:00 98.8 F 73 18 01/19/18 14:29 79 155/72 H 01/19/18 12:00 98.3 F 79 18 01/19/18 08:50 89 94 188/89 H 181/87 H 01/19/18 08:00 98.3 F 79 18 BP BP Pulse Ox 01/19/18 16:00 135/74 01/19/18 14:29 01/19/18 12:00 145/74 H 01/19/18 08:50 01/19/18 08:00 171/82 H 94 L Weight 172 lb 1.6 oz 01/18/18 01/19/18 01/20/18 06:59 06:59 06:59 Intake Total 750 1760 Output Total 797 490 Balance -47 1270 - Physical Examination General/Neuro: alert & oriented x3, NAD Neck: no JVD present Lungs: CTA, unlabored respirations Heart: RRR Abdomen: NT/ND Extremities: + edema B (1+) - Telemetry Telemetry Rhythm: NSR - Labs Result Diagrams: 01/18/18 04:28 01/18/18 04:28 Troponin/CKMB CK-MB (CK-2) 4.7 ng/mL (0-6.6) 01/14/18 22:42 Troponin I 41.696 ng/mL (< 0.028) H* 01/15/18 11:59 - Assessment/Plan 1. s/p CABG x 4. HILTON to LAD, SVG to RPDA, SVG to OM, SVG to diagonal. 2. Multivessel CAD. 3. NSTEMI 4. T2DM 5. HTN PLAN: - Aspirin and statin for life. - Will start low dose ACEI today. - Continue coreg. - PT as tolerated.
[2018-01-19] MEDS: Atorvastatin Calcium 40 MG TAB PO SCH (20:08)
[2018-01-19] MEDS: Donepezil HCl 5 MG TAB PO SCH (20:09)
[2018-01-19] MEDS: Diltiazem HCl 125 MG, Admixture Fee 1 EACH in Sodium Chloride 0.9% 100 ML IVPB SCH (21:35)
[2018-01-20] MEDS: Diltiazem HCl 125 MG, Admixture Fee 1 EACH in Sodium Chloride 0.9% 100 ML IVPB SCH (05:32)
[2018-01-20] MEDS ORDERED: Diltiazem HCl 125 MG, Admixture Fee 1 EACH in Sodium Chloride 0.9% 100 ML IVPB PRN (06:15)
--- NOTE | 2018-01-20 08:51 | PRG ---
DATE OF SERVICE: 01/20/2018 HISTORY OF PRESENT ILLNESS: The patient successfully had a bowel movement yesterday evening, continu es to pass flatus, has no acute complaints. He is eager to get transferred to rehab in order to get stronger to be reunited with his spouse who is currently at [facility]. PHYSICAL EXAMINATION: VITAL SIGNS: Temperature is 98.1, pulse is 75, respiratory rate of 18, oxygen saturation 94% on room air, blood pressure 145/68. Laboratory work reviewed includes blood glucoses ranged 101 to 180 last 12 hours. GENERAL: The patient is alert and oriented, in no acute distress. HEENT: Head is normocephalic, atraumatic. Extraocular movements are intact. Sclerae are clear. Or al mucosa is moist. NECK: Supple, nontender. HEART: Regular rate and rhythm at time of exam. LUNGS: Clear to auscultation bilaterally. No rubs or wheezes. Dressing intact over his sternal rory gical closure site. ABDOMEN: Soft, nontender, positive bowel sounds throughout. EXTREMITIES: Lower extremities without cyanosis or edema. Left vein harvest sites with dressings in tact. NEUROLOGIC: The patient is alert and oriented x2. No focal deficits. Speech is normal. ASSESSMENT AND PLAN: Status post coronary artery bypass graft, 4-vessel, diabetes type 2. Parkinson ism, dysphagia, constipation. Constipation appears to be resolving given current p.r.n. medications and scheduled docusate, will continue. The patient's blood sugars appear controlled at this point in time. The patient down to 4 units of sliding scale yesterday. We will consider re-adding sulfonylu antonio with the patient's home metformin. The patient is doing well with therapy regarding his rehab, p otential inpatient rehab. Discharge in the next 1-2 days per her Cardiovascular Surgery. The patient continues to tolerate goo d oral intake without reports of choking incidents per nursing or the patient. Covering for Dr. Al Fine currently, will hand off to Dr. Rakan Banks over the weekend.
[2018-01-20] MEDS: metFORMIN 500 MG TAB PO SCH ×2 (09:09→16:47)
[2018-01-20] MEDS: Carvedilol 3.125 MG TAB PO SCH ×2 (09:09→16:46)
[2018-01-20] MEDS: glipiZIDE 5 MG TAB PO SCH ×2 (09:09→16:46)
[2018-01-20] MEDS: Aspirin 325 mg Enteric Coated Tablet PO SCH (09:09)
[2018-01-20] MEDS: Losartan 25 MG TAB PO SCH (09:10)
[2018-01-20] MEDS: Docusate 100 MG CAP PO SCH ×2 (09:10→20:35)
[2018-01-20] MEDS: Carbidopa/Levodopa 25-100 mg Tablet PO SCH ×3 (09:10→20:34)
[2018-01-20] MEDS: Famotidine 20 MG TAB PO SCH ×2 (09:10→20:35)
--- NOTE | 2018-01-20 13:45 | PDOC.CTH ---
Cardiology Progress Note - Subjective He is doing well. he had a BM this morning and feels well. he is working with PT. - Objective Vital Signs Temp Pulse Resp BP BP Pulse Ox 01/20/18 11:36 98.3 F 71 18 120/64 94 L 01/20/18 07:58 98.6 F 70 18 91 L 01/20/18 07:50 98.6 F 70 18 129/60 91 L 01/20/18 04:00 98.4 F 69 16 131/61 69 L Weight 165 lb 1 oz 01/19/18 01/20/18 01/21/18 06:59 06:59 06:59 Intake Total 1760 1170 Output Total 490 1375 Balance 1270 -205 - Physical Examination General/Neuro: alert & oriented x3, NAD Neck: no JVD present Lungs: CTA, unlabored respirations Heart: RRR Abdomen: NT/ND Extremities: + edema B (1+) - Telemetry Telemetry Rhythm: NSR - Labs Result Diagrams: 01/18/18 04:28 01/18/18 04:28 Troponin/CKMB CK-MB (CK-2) 4.7 ng/mL (0-6.6) 01/14/18 22:42 Troponin I 41.696 ng/mL (< 0.028) H* 01/15/18 11:59 - Assessment/Plan 1. s/p CABG x 4. HILTON to LAD, SVG to RPDA, SVG to OM, SVG to diagonal. 2. Multivessel CAD. 3. NSTEMI 4. T2DM 5. HTN PLAN: - Aspirin and statin for life. - Continue coreg and losartan. - Increase PT as tolerated. May need inpatient PT
[2018-01-20] MEDS: Atorvastatin Calcium 40 MG TAB PO SCH (20:35)
[2018-01-20] MEDS: Donepezil HCl 5 MG TAB PO SCH (20:36)
[2018-01-21] MEDS: glipiZIDE 5 MG TAB PO SCH (08:37)
[2018-01-21] MEDS: Carvedilol 3.125 MG TAB PO SCH (08:37)
[2018-01-21] MEDS: metFORMIN 500 MG TAB PO SCH (08:37)
[2018-01-21] MEDS: Aspirin 325 mg Enteric Coated Tablet PO SCH (08:37)
[2018-01-21] MEDS: Carbidopa/Levodopa 25-100 mg Tablet PO SCH (08:38)
[2018-01-21] MEDS: Losartan 25 MG TAB PO SCH (08:38)
[2018-01-21] MEDS: Docusate 100 MG CAP PO SCH (08:38)
[2018-01-21] MEDS: Famotidine 20 MG TAB PO SCH (08:38)
--- NOTE | 2018-01-21 10:16 | PRG ---
DATE OF SERVICE: 01/21/2018 SUBJECTIVE: The patient is doing well postop day #5, status post coronary artery bypass grafting x4 by Dr. Oneil. The patient is doing well. He states he is going to rehab today. Just complaints of some mild chest and leg discomfort from the surgery. Otherwise, he is doing well. No complaints of any chest pain. OBJECTIVE: VITAL SIGNS: Temperature 98.9, pulse 72, respirations 16, pulse ox 95, blood pressure 135/65. HEART: Regular rate and rhythm. LUNGS: Clear. ABDOMEN: Soft. EXTREMITIES: With no edema. LABORATORY: Blood sugar 125, 142, and 119. ASSESSMENT: 1. Postoperative day #5, status post coronary artery bypass grafting x4. 2. Multivessel coronary artery disease. 3. [id number]-[id number]-ajxkqkjyi myocardial infarction. 4. Type 2 diabetes. 5. Hypertension. 6. Hyperlipidemia. 7. Parkinson's. PLAN: 1. Possible transfer to cardiac rehab today. 2. Resume all medications to include aspirin 325 daily, Lipitor 40 daily, Sinemet 4.5 t.i.d., Coreg 6.25 b.i.d., Aricept 5 mg daily, glipizide 5 b.i.d., hydrocodone p.r.n., insulin sliding scale, losar ramírez 25 mg daily, metformin 1000 p.o. b.i.d. and the patient to follow up with Dr. Benitez Fine in [facility] office.
--- NOTE | 2018-01-21 10:47 | PDOC.CTH ---
<Lilia Ruiz - Last Filed: 01/21/18 13:33> Cardiology Progress Note - Subjective Awake, sitting up in chair at bedside. Denies chest pain, shortness of breath. Ambulated in [place] with PT earlier today, states did well. Using IS hourly, hoping to go to SNF today. - Objective Vital Signs Temp Pulse Resp BP BP Pulse Ox 01/21/18 07:53 98.9 F 72 16 135/65 95 01/21/18 04:00 98.3 F 81 13 162/78 H 96 01/21/18 00:00 97.9 F 77 16 167/79 H 95 Weight 165 lb 4.8 oz 01/20/18 01/21/18 01/22/18 06:59 06:59 06:59 Intake Total 1170 1420 Output Total 1375 870 Balance -205 550 - Physical Examination General/Neuro: alert & oriented x3, NAD Neck: no JVD present (supple) Lungs: CTA, unlabored respirations Heart: RRR Abdomen: NT/ND, soft Extremities: + edema B (trace BLE edema) Other PE findings: Midsternal incision s/ erythema, drainage - Telemetry Telemetry Rhythm: SR 70s - Labs Result Diagrams: 01/18/18 04:28 01/18/18 04:28 Troponin/CKMB CK-MB (CK-2) 4.7 ng/mL (0-6.6) 01/14/18 22:42 Troponin I 41.696 ng/mL (< 0.028) H* 01/15/18 11:59 - Assessment/Plan Assessment/Plan: 1. s/p CABG x 4. HILTON to LAD, SVG to RPDA, SVG to OM, SVG to diagonal. Plan for transfer to SNF today. 2. Multivessel CAD.-continue ASA, statin 3. NSTEMI 4. T2DM 5. HTN-continue carvedilol, losartan Follow-up with in 3 weeks. <Marisa Alcocer - Last Filed: 01/22/18 07:24> Cardiology Progress Note - Objective Weight 165 lb 4.8 oz 01/21/18 01/22/18 01/23/18 06:59 06:59 06:59 Intake Total 1420 Output Total 870 Balance 550 - Labs Result Diagrams: 01/18/18 04:28 01/18/18 04:28 Troponin/CKMB CK-MB (CK-2) 4.7 ng/mL (0-6.6) 01/14/18 22:42 Troponin I 41.696 ng/mL (< 0.028) H* 01/15/18 11:59 Attending Addendum - Attending Addendum Date/Time: 01/22/18 0724 I personally evaluated the patient and discussed the management with Dr. [] I agree with the History, Examination, Assessment and Plan documented above with any addition or exceptions noted below.
[2018-01-21 12:35] VITALS: BP 120/57; TEMP 97.9
--- NOTE | 2018-01-22 08:39 | EKG ---
Test Reason : POST CABG Blood Pressure : / mmHG Vent. Rate : 063 BPM Atrial Rate : 063 BPM P-R Int : 180 ms QRS Dur : 090 ms QT Int : 530 ms P-R-T Axes : 080 -44 -86 degrees QTc Int : 542 ms Normal sinus rhythm Left axis deviation Inferior infarct (cited on or before 14-JAN-2018) Prolonged QT Abnormal ECG Confirmed by SHAYNA QUESADA, ARSH ([id number]) on 01/22/2018 8:38:38 AM Referred By: DENIA Confirmed By:ARSH CORRAL MD
--- NOTE | 2018-01-23 09:34 | DIS ---
HOSPITAL COURSE: This is an 82-year-old gentleman who presented to the hospital through the emergenc y room on 01/14/2018. He was taken to the [facility] where he underwent cardiac catheterization showin g 3-vessel coronary artery disease. His initial troponin of 21 prompted the catheterization. He was taken to the operating room on 01/16/2018 where he underwent 4-vessel bypass grafting to the LAD, di agonal, OM and right posterolateral receiving no perioperative transfusions. He was extubated and tr ansferred to the floor where he made good progress with physical therapy. Because of his advanced Pa rkinson's disease it was suggested that he undergo placement in rehab, which was carried out. He was discharged to rehab on 01/21/2018 on Pepcid 20 b.i.d., Glucotrol 5 mg b.i.d., hydrocodone as needed for pain, losartan 25 mg a day, Metformin 1000 b.i.d., MiraLax 1 a day. He is to continue his home m edicines of the Aricept, HCTZ, atorvastatin 40, carbidopa 4.5 tablets 3 times a day. He also should continue an aspirin daily. Discharge and follow up instructions were given by the discharging physic jennifer.
[2018-01-30 14:40] LABS: Analyzer IN Cardio OR; Base Excess (BEa) 0.9 mEq/L (0 (+/-) 2.5); Calcium, Ionized 1.2 mmol/L (1.12-1.30); Hematocrit-ABG 38.3 % (42.0-52.0); Hemoglobin (Hb) 12.2 g/dL (14.0-18.0); O2 Tension (PaO2) 396.3 mmHg (80.0-100.0); Puncture Site ALINE; pH, Arterial 7.44 (7.35-7.45)
[2018-01-30 14:41] LABS: Actual Bicarbonate (HCO3a) 23.7 mEq/L (22-26); Analyzer IN Cardio OR; Base Excess (BEa) -0.8 mEq/L (0 (+/-) 2.5); CO2 Tension 38.6 mmHg (35.0-45.0); Calcium, Ionized 1.2 mmol/L (1.12-1.30); Hematocrit-ABG 35.8 % (42.0-52.0); Hemoglobin (Hb) 11.9 g/dL (14.0-18.0); O2 Tension (PaO2) 403.2 mmHg (80.0-100.0); pH, Arterial 7.41 (7.35-7.45)
[2018-01-30 14:42] LABS: Actual Bicarbonate (HCO3a) 24.6 mEq/L (22-26); Base Excess (BEa) -0.3 mEq/L (0 (+/-) 2.5); CO2 Tension 41.5 mmHg (35.0-45.0); Hematocrit-ABG 26.2 % (42.0-52.0); O2 Tension (PaO2) 302.9 mmHg (80.0-100.0); pH, Arterial 7.39 (7.35-7.45)
[2018-01-30 14:42] LABS: Puncture Site ALINE
[2018-01-30 14:43] LABS: Analyzer IN Cardio OR; Calcium, Ionized 1.1 mmol/L (1.12-1.30); Puncture Site ALINE
[2018-01-30 14:43] LABS: Actual Bicarbonate (HCO3a) 24.4 mEq/L (22-26); Base Excess (BEa) -1.6 mEq/L (0 (+/-) 2.5); CO2 Tension 47.1 mmHg (35.0-45.0); O2 Tension (PaO2) 400.1 mmHg (80.0-100.0); pH, Arterial 7.33 (7.35-7.45)
[2018-01-30 14:44] LABS: Analyzer IN Cardio OR; Calcium, Ionized 1.2 mmol/L (1.12-1.30); Hematocrit-ABG 25.6 % (42.0-52.0); Hemoglobin (Hb) 8.7 g/dL (14.0-18.0); Puncture Site ALINE
[2018-01-30 14:45] LABS: Actual Bicarbonate (HCO3a) 22.8 mEq/L (22-26); Analyzer IN Cardio OR; CO2 Tension 33.9 mmHg (35.0-45.0); Calcium, Ionized 1.1 mmol/L (1.12-1.30); Hematocrit-ABG 24.7 % (42.0-52.0); Hemoglobin (Hb) 8.7 g/dL (14.0-18.0); Puncture Site ALINE; pH, Arterial 7.45 (7.35-7.45)
[2018-01-30 14:47] LABS: Actual Bicarbonate (HCO3a) 22.1 mEq/L (22-26); Base Excess (BEa) -1.4 mEq/L (0 (+/-) 2.5); CO2 Tension 32.7 mmHg (35.0-45.0); Hematocrit-ABG 29.2 % (42.0-52.0); Hemoglobin (Hb) 10.3 g/dL (14.0-18.0); O2 Tension (PaO2) 407.3 mmHg (80.0-100.0); pH, Arterial 7.45 (7.35-7.45)
[2018-01-30 14:48] LABS: Analyzer IN Cardio OR; Calcium, Ionized 1.1 mmol/L (1.12-1.30); Puncture Site ALINE
== END 2018-01-21 14:02 | DRG 233 ==
LOC: ERS 22:30 → 2NO 23:36 → CCU 01-15 09:38 → 2NO 01-18 10:12
PROVIDERS: ADMIT Family Medicine; ATTEND Family Medicine
PROC: 4A023N7 Measurement of Cardiac Sampling and Pressure, Left Heart, Percutaneous Approach (ICD-10-PCS; 2018-01-15)
PROC: B2111ZZ Fluoroscopy of Multiple Coronary Arteries using Low Osmolar Contrast (ICD-10-PCS; 2018-01-15)
PROC: B2151ZZ Fluoroscopy of Left Heart using Low Osmolar Contrast (ICD-10-PCS; 2018-01-15)
PROC: 02100Z9 Bypass Coronary Artery, One Artery from Left Internal Mammary, Open Approach (ICD-10-PCS; principal; 2018-01-16)
PROC: 021209W Bypass Coronary Artery, Three Arteries from Aorta with Autologous Venous Tissue, Open Approach (ICD-10-PCS; 2018-01-16)
PROC: 06BQ0ZZ Excision of Left Saphenous Vein, Open Approach (ICD-10-PCS; 2018-01-16)
PROC: 5A1221Z Performance of Cardiac Output, Continuous (ICD-10-PCS; 2018-01-16)
DX: I25.119 Atherosclerotic heart disease of native coronary artery with unspecified angina pectoris (principal); I21.4 Non-ST elevation (NSTEMI) myocardial infarction; I10 Essential (primary) hypertension; G20 Parkinson's disease; E78.5 Hyperlipidemia, unspecified; E11.9 Type 2 diabetes mellitus without complications; Z79.84 Long term (current) use of oral hypoglycemic drugs; Z79.82 Long term (current) use of aspirin; R13.10 Dysphagia, unspecified; K59.00 Constipation, unspecified
CPT/HCPCS: 36415; 36416; 36430; 71045; 80048; 80053; 81003; 82553; 82805; 83036; 83690; 83735; 84484; 85025; 85610; 85730; 86850; 86900; 86901; 90471; 90670; 92977; 93005; 93010; 93306; 93458; 93798; 94002; 94150; 96372; A4216; C1769; G0009; G8978-GP-CL; G8979-GP-CI; G8987-GO-CL; G8988-GO-CJ; J0360; J1265; J1644; J1650; J1815; J1885; J2001; J2250; J2370; J2440; J2704; J2720; J3010; J3246; J3370; J3475; J3480; J7050; P9045; Q0162; S0017

== ENCOUNTER 2018-03-13 16:23 | Inpatient (IN) | payer MEDICARE ==
[2018-03-13 17:26] LABS: #Eosinphils 0.3 thou/uL (0.0-0.7); #Monocytes 0.8 thou/uL (0.11-0.59); #Neutrophils 5.6 thou/uL (1.40-6.50); %Basophils 0.5 % (0.0-1.0); %Eosinophils 4.2 % (0.0-10.0); %Lymphocytes 13.3 % (21.0-51.0); %Monocytes 10.3 % (0.0-10.0); %Neutrophils 71.7 % (42.0-75.0); Hemoglobin 11.9 g/dL (14.0-18.0); Mean Corpuscular HGB CONC 32.5 g/dL (32.0-36.0); Mean Corpuscular Hemoglobin 29.7 pg (27.0-31.0); Mean Corpuscular Volume 91.3 fl (80.0-94.0); Mean Platelet Volume 6.6 fL (7.4-10.4); Platelet Count 235 thou/uL (130-400); RBC Distribution Width 12.8 % (11.5-14.5); White Blood Cell (WBC) Count 7.8 thou/uL (4.8-10.8)
[2018-03-13 17:31] LABS: PTT 27.1 SEC (22.9-36.1); Prothrombin Time 13.6 SEC (12.0-14.7)
--- NOTE | 2018-03-13 17:36 | CT ---
CT HEAD WITHOUT CONTRAST: INDICATIONS: Fall with injury to head. COMPARISON: Head CT from 02/14/2017. TECHNIQUE: Multiple axial tomograms obtained through the head without IV enhancement. FINDINGS: There is an acute subdural hematoma over the left convexity, measuring 7 to 8 mm in thickness. Some low attenuation within this may represent hyperacute blood. This is producing slight midline shift t o the right, measured at 6 mm, at the septum pellucidum. The paranasal sinuses and mastoids are mandeep r. No evidence of skull fracture identified. A small scalp hematoma is noted over the posterior lef t parietal bone. IMPRESSION: Left subdural hematoma of the entire left convexity, with midline shift as described above. Findings discussed with Dr. Bello at the time of the dictation. CODE CR POS: [facility]
[2018-03-13] MEDS ORDERED: niCARdipine 20MG In NaCl 20 MG/200 ML BAG ONE ×2 (17:44→19:51)
[2018-03-13 17:47] LABS: ALT (SGPT) Less than 7 U/L (8-55); AST (SGOT) 14 U/L (5-34); Alkaline Phosphatase 106 U/L (40-150); Anion Gap 12 mmol/L (10-20); BUN (Urea Nitrogen) 16 mg/dL (8.4-25.7); Bilirubin, Total 0.3 mg/dL (0.2-1.2); Calc. Creatinine Clearance 0 mL/min (70-130); Calcium 9.5 mg/dL (7.8-10.44); Carbon Dioxide 25 mmol/L (23-31); Chloride 105 mmol/L (98-107); Estimated GFR-MDRD Greater than 90; Globulin 2.7 g/dL (2.4-3.5); Glucose 98 mg/dL (83-110); Potassium 4.4 mmol/L (3.5-5.1); Protein, Total 6.7 g/dL (5.8-8.1); Sodium 138 mmol/L (136-145)
[2018-03-13 17:52] LABS: CKMB 0.9 ng/mL (0-6.6); Troponin I Less than 0.010 ng/mL (< 0.028)
--- NOTE | 2018-03-13 17:55 | CT ---
CT CERVICAL SPINE: INDICATIONS: Fall with injury to neck. TECHNIQUE: Multiple axial tomograms obtained through the cervical spine with multiplanar reconstruction. FINDINGS: The cervical spine shows moderate degenerative change. Disk space loss and hypertrophic changes are seen throughout the cervical spine. No evidence of acute fracture identified. IMPRESSION: Moderate degenerative changes of the cervical spine. No evidence of acute fracture identified. POS: [facility]
[2018-03-13] MEDS ORDERED: Acetaminophen 500 MG TAB ONE (17:59)
--- NOTE | 2018-03-13 18:01 | RAD ---
LEFT ELBOW FOUR VIEWS: HISTORY: Fall with injury to elbow. FINDINGS: No evidence of fracture. No evidence of joint effusion. IMPRESSION: No acute osseous abnormality. POS: [facility]
[2018-03-13 18:16] LABS: Bilirubin Negative (Negative); Blood, Urine Negative (Negative); Clarity CLEAR (Clear); Glucose, Urine (Dipstick) 100 mg/dL (Negative); Leukocyte Negative (Negative); Nitrite Negative (Negative); Protein, Urine (Dipstick) Negative (Neg-Trace); Specific Gravity, Urine 1.013 (1.002-1.036); Urobilinogen 0.2 mg/dL (0.2-1.0)
[2018-03-13] MEDS ORDERED: Sodium Chloride 0.9% 1,000 ML IV SCH (20:41)
[2018-03-13] MEDS ORDERED: Ondansetron HCl/PF 4 MG/2 ML Vial IVP PRN (20:44)
[2018-03-13] MEDS ORDERED: Dextrose 5% in Water 1,000 ML IV PRN (20:44)
[2018-03-13] MEDS ORDERED: Dextrose 50% Abboject 50 ML SYRINGE SLOW IVP PRN (20:44)
[2018-03-13] MEDS ORDERED: Ondansetron ODT 4 MG TAB PO PRN (20:44)
[2018-03-13] MEDS ORDERED: niCARdipine HCl 25 MG in Sodium Chloride 0.9% 250 ML 240 ML IVPB SCH (20:45)
[2018-03-13] MEDS ORDERED: Polyethylene Glycol 3350 17 GM Packet PO PRN (22:14)
[2018-03-13] MEDS ORDERED: Mineral Oil ENEMA PR PRN (22:14)
[2018-03-13] MEDS: Sodium Chloride 0.9% 1,000 ML IV SCH (22:42)
[2018-03-13 23:00] VITALS: BMI 21.4
[2018-03-14] MEDS: Acetaminophen 1,000 MG in Premix Bag 1 BAG IVPB SCH ×5 (01:00→23:36)
--- NOTE | 2018-03-14 03:23 | HP-2 ---
DATE OF ADMISSION: 03/13/2018. ADMITTING PHYSICIAN: Benitez Ortiz M.D. REQUESTING PHYSICIAN: Dr. Priest. CONSULTING PHYSICIAN: Eva Dawkins M.D. with Neurosurgery. HISTORY OF PRESENT ILLNESS: Mr. Rome is an 82-year-old male who presents after a fall around 3:00 p.m. today. He was apparently bending over to pick something up off the floor. He then stood up and then he lost his balance and fell backwards onto his head. He denies any loss of consciousness. He does not complain of really any other pain other than pain to his left elbow. The patient is a rather poor historian; however, daughter is present at the time of interview and states that he has had increasing falls over the last 2 weeks, specifically 3 falls. He is unsure if any other injuries had occurred at that time other than his left elbow. The patient's daughter states that he did have a urinary tract infection treated with ciprofloxacin previously and that was the likely cause of his falls from earlier. The patient's daughter states that the patient currently lives in a senior apartment complex where he ambulates with a walker at all times. No other complaints today. PAST MEDICAL HISTORY: Diabetes type 2, hyperlipidemia, hypertension, and Parkinson's as well as CAD. PAST SURGICAL HISTORY: 1. Hernia repair unknown year. 2. A 4-vessel CABG in 01/2018. SOCIAL HISTORY: Patient lives in a senior apartment complex. He socially drinks one-glass of wine per week. Denies any drug use. Denies any smoking history. CURRENT MEDICATIONS: 1. Carbidopa/levodopa 25 mg/100 4.5 tabs 3 times a daily. 2. Losartan 25 mg 2 b.i.d. 3. Glipizide 10 mg q.a.m. 4. Hydrochlorothiazide 12.5 mg q.a.m. 5. Metformin 500 mg q.a.m. 6. Calcium 500 plus D3 of 500 mg/125 units q.a.m. 7. Atorvastatin 40 mg at bedtime. 8. Donepezil 5 mg at bedtime. 9. Aspirin 81 mg daily. LABORATORY DATA: The patient had a urinalysis that was remarkable only for glucose of 100. He had a CK-MB of 0.9. Troponin I of less than 0.010. Sodium 138, potassium 4.4, BUN of 16, creatinine 0.78, glucose of 98, calcium 9.5, albumin 4.0, AST of 14, ALT is less than 7. PTT of 27.1 and INR of 1.0 and a PT of 13.6. White blood cell count 7.8, hemoglobin 11.9, hematocrit 36.6, platelet count of 235. DIAGNOSTIC IMAGING: The patient underwent a brain CT that showed left subdural hematoma of the entire left convexity with midline shift as described above, measuring 7-8 mm in thickness. The patient also went under a left elbow x-ray that showed no acute osseous abnormality and the patient underwent a cervical spine CT that showed moderate degenerative change of cervical spine, no evidence of acute fracture identified. REVIEW OF SYSTEMS: Constitutional: The patient denies fevers, denies any chills. Eyes: Denies eye redness or eye discharge. ENT: Denies any drooling or dysphonia. Cardiovascular: Denies chest pain or palpitations. Respiratory: Denies cough or shortness of breath. Gastrointestinal: Denies abdominal pain or vomiting. Musculoskeletal: Does report fall and left elbow pain. Neurologic: Denies any focal weakness or speech changes. Psychiatric: Denies emotional lability and denies hallucinations. PHYSICAL EXAMINATION: VITAL SIGNS: BP 145/74, pulse 89, respirations 18, temperature 97.8, oxygen saturation 97% on room air. GENERAL: Elderly male lying in bed with a C-collar on. No acute distress. HEENT: He has a soft tissue hematoma on the posterior scalp. NECK: Trachea midline. C-collar in place. PULMONARY: Bilateral breath sounds are clear. No respiratory distress. CARDIAC: Regular rate and rhythm. No murmurs. No gallops. ABDOMEN: Soft, nontender, and nondistended. EXTREMITIES: He does show a left elbow tenderness with bursitis of the left elbow. Range of motion is within normal limits. Motor and strength are normal. NEUROLOGIC: GCS is 15. He is awake, alert x4. No focal neurologic deficits. SKIN: Warm and dry, normal in color. ASSESSMENT: 1. Status post ground-level fall. 2. Subdural hematoma. 3. Left elbow bursitis. 4. History of hypertension. 5. History of 4-vessel coronary artery bypass graft. 6. History of Parkinson disease. 7. History of diabetes mellitus type 2. PLAN: 1. Ad[facility] to [facility]. Consult to Dr. Dawkins, Neurosurgery. 2. N.p.o. for now until further definitive treatment is known. 3. IV acetaminophen for pain, nicardipine drip and hydralazine for blood pressure control. 4. Continue home meds as appropriate. 5. SCDs for DVT prophylaxis. Chemical thrombosis prophylaxis is contraindicated now because of his subdural hematoma. 6. Repeat CT scan at 2300 hours. 7. Consultation with Occupational Therapy and Physical Therapy as well as speech evaluation. 8. The patient will be reviewed with Dr. Ortiz who agrees with plan. GAMAD
[2018-03-14 05:35] LABS: #Eosinphils 0.4 thou/uL (0.0-0.7); #Lymphocytes 1.2 thou/uL (1.20-3.40); #Monocytes 0.8 thou/uL (0.11-0.59); #Neutrophils 5.4 thou/uL (1.40-6.50); %Basophils 0.3 % (0.0-1.0); %Eosinophils 5.6 % (0.0-10.0); %Lymphocytes 14.9 % (21.0-51.0); %Monocytes 9.7 % (0.0-10.0); %Neutrophils 69.5 % (42.0-75.0); Hemoglobin 11.6 g/dL (14.0-18.0); Mean Corpuscular HGB CONC 32.5 g/dL (32.0-36.0); Mean Corpuscular Hemoglobin 29.5 pg (27.0-31.0); Mean Corpuscular Volume 90.8 fl (80.0-94.0); Mean Platelet Volume 6.3 fL (7.4-10.4); Platelet Count 226 thou/uL (130-400); RBC Distribution Width 12.7 % (11.5-14.5); Red Blood Cell (RBC) Count 3.94 mill/uL (4.70-6.10); White Blood Cell (WBC) Count 7.8 thou/uL (4.8-10.8)
[2018-03-14 05:53] LABS: Anion Gap 11 mmol/L (10-20); BUN (Urea Nitrogen) 8 mg/dL (8.4-25.7); Calc. Creatinine Clearance 96 mL/min (70-130); Calcium 8.9 mg/dL (7.8-10.44); Carbon Dioxide 25 mmol/L (23-31); Chloride 108 mmol/L (98-107); Estimated GFR-MDRD Greater than 90; Glucose 100 mg/dL (83-110); Potassium 3.7 mmol/L (3.5-5.1); Sodium 140 mmol/L (136-145)
[2018-03-14] MEDS: hydrALAZINE 20 MG/ML VIAL SLOW IVP PRN ×2 (06:03→15:08)
[2018-03-14] MEDS ORDERED: niCARdipine HCl 25 MG in Sodium Chloride 0.9% 250 ML 240 ML IVPB SCH (06:45)
--- NOTE | 2018-03-14 07:37 | HP ---
CHIEF COMPLAINT: Fall. HISTORY OF PRESENT ILLNESS: This is an 82-year-old male who reports to the ER for evaluation for rec ent fall where he had hit his head. Patient states that he was bending down to pick something up and lost his balance. He has been falling over the last 2 weeks. His daughter states that his primary care physician has been monitoring him and treating him for UTI, which is thought that was the reason ing for his falls. Patient denies any headache, any dizziness or disorientation. He denies any numb ness or tingling in his body. PAST MEDICAL HISTORY: Positive for Parkinson's, hypertension, diabetes, hyperlipidemia, cardiovascul ar disease. PAST SURGICAL HISTORY: The patient had a CABG in January and hernia repairs. FAMILY HISTORY: Positive for hypertension and stroke. SOCIAL HISTORY: He is a former smoker, stopped in 1972; however, he chews tobacco irregularly and hi s last nicotine was prior to his CABG in January. He is a , [facility] he has his own apartment and more or less takes care of himself. He attends exercise class wher e he rides a bike. He uses a walker to ambulate. Has PT and OT once a week and likes to play cards. ALLERGIES: No known drug allergies. MEDICATIONS: Carbidopa/levodopa, losartan, glipizide, hydrochlorothiazide, metformin, calcium, atorv astatin, donepezil, and aspirin. REVIEW OF SYSTEMS: The patient denies any headache, dizziness, difficulty swallowing. No sore throa t. No change in vision or change in hearing. No abdominal pain, no nausea, no diarrhea. Positive f or constipation, muscle pain, and bone pain in his elbow where he fell. PHYSICAL EXAMINATION: VITAL SIGNS: BP 169/80, heart rate 85, respiratory rate 22, temperature 98.8, O2 was 95 on room air. The patient denies any pain at this time. GENERAL: The patient appears comfortable in his hospital bed, relaxed, in no visible distress. The patient is alert and oriented to person, place, and time, was able to tell me who he is, date of flaco h, current president, old memories are intact. The patient was unable to tell me his address but he knew his room number. Daughter states that this is his normal fund of knowledge. NEUROLOGIC: Cranial nerves II through XII are intact. Upper and lower extremities motor function is normal. Equal bilateral 5/5 strength. Sensation to light touch is equal bilaterally in all 4 extre mities. No pronator drift. IMAGING: Brain CT shows a left subdural hematoma covering left convexity measuring 7-8 mm, slight mi dline shift 6 mm. ASSESSMENT: Subdural hematoma. PLAN: Along with trauma, we are going to admit the patient to the hospital. We are going to monitor his neuro status with hourly status checks. Repeat brain CT at 4:00 a.m. Stop aspirin and maintain BP.
--- NOTE | 2018-03-14 07:43 | PRG ---
DATE OF SERVICE: 03/14/2018 I personally interviewed and examined the patient and agree with documentation of Jamarcus Morales dated 03/13/2018. Briefly, Drake Thomson is a twice widowered 82-year-old gentleman who lives in assisted living here in [facility]. He has a history of Parkinson's disease. Yesterday he fell over backwards an d hit his head and was brought to the emergency department. In the emergency department CT examinati on of the brain showed a subdural hemorrhage over the left hemisphere with a minimal amount of shift. The maximal dimension was about 9 mm. This shift was about 3-4 mm at the level of the foramen of M onro. Because of his excellent neurological condition, Mr. Thomson was admitted overnight and I am s eeing him in the ICU this morning. His blood pressure is well controlled and below our target of 155 . He is awake. He is alert. He is answering questions appropriately. His speech is a little soft, but it is intelligible and it is appropriate. He remembers the name of his heart surgeon (Leland samson), he remembers the month, his age. He remembers his medications and he knows why he is in the h ospital. When I palpate the cervical spine there is no significant tenderness. He has good rotational range o f motion in flexion and extension without significant pain. His cranial nerves are working well, the re is no dysmetria. He actually has fairly good alternating rapid motions in both upper extremities. There is no pronator drift. There is no neglect of the right side. There is no upper motor neuron weakness on the right side. There is no loss of double simultaneous stimulation. There is no loss of right-sided sensation with double simultaneous stimulation. However, the new CT scan of the brain shows a bit more blood in the parietal occipital region and the posterior parietal region on the left side. When I make measurements of the subdural I think it is a little bit thinner anteriorly and thicker posteriorly, the shift has reduced compared to yesterday at the foramen of Monro, at the collection the parietal collection is thicker. This is in an area wh ere he had deep sulci and no significant brain parenchyma and left brain parenchyma to occlude that i s subdural space. ASSESSMENT: Subdural hemorrhage. slightly larger parietal, slightly smaller frontal. PLAN: I told Mr. Thomson that he is doing so well neurologically that we would like to ideally wait and see if he can resolve the hemorrhage on his own. We will rescan him at noon, but keep him n.p.o . If it continues to enlarge or if he develops neurological deficit we will suggest surgical interve ntion. An early surgery would be a large craniotomy. A surgery 10-12 days from now could be done th rough fanny holes as the clot would liquefy by then. Hopefully, he does not need any surgery at all. We will need to keep Mr. Thomson in the hospital and observe him and make sure there is no neurologic al deterioration over the next few days before returning to his assisted living facility. I would li ke to keep him off aspirin during that time.
[2018-03-14] MEDS ORDERED: glipiZIDE 10 MG TAB PO SCH (08:00)
[2018-03-14] MEDS ORDERED: metFORMIN 500 MG TAB PO SCH (08:00)
[2018-03-14] MEDS: Sodium Chloride 0.9% 1,000 ML IV SCH (08:45)
[2018-03-14] MEDS: Carbidopa/Levodopa 25-100 mg Tablet PO SCH ×3 (09:55→21:24)
[2018-03-14] MEDS: Calcium Carbonate + Vit D 1 TAB PO SCH (09:55)
[2018-03-14] MEDS: Losartan 25 MG TAB PO SCH ×3 (09:56→21:23)
--- NOTE | 2018-03-14 10:13 | CT ---
PRELIMINARY REPORT/[facility]/EMERGENTY AFTER-HOURS PROCEDURE Addendum created by Manuleito Harley MD on 03/14/2018 6:41 AM Central Time ([place] & [place]) Initial attem pt to talk to DOM Almonte 03/14/2018 regarding acute findings at 6:07 AM was unsuccessful. THIS REPORT CONTAINS FINDINGS THAT MAY BE CRITICAL TO PATIENT CARE. The findings were verbally commun icated via telephone conference with Charge Nurse Debra Radford at 6:39 AM CDT on 03/14/2018. The findi ngs were acknowledged and understood. Initial Report created on 03/14/2018 5:25 AM Central Time ([place] & [place]) CT Head Without Intravenous Contrast CLINICAL HISTORY: 82 years old, male; Condition or disease; Aneurysm, cerebral; Patient HX: Patient reports abd pain wi th distension f/u TECHNIQUE: Axial computed tomography images of the head/brain without intravenous contrast. COMPARISON: No relevant prior studies available. FINDINGS: Diffuse cerebral volume loss. Chronic small vessel disease. Left cerebral convexity holohemispheric acute subdural hematoma measuring approximately 12 mm in grea test thickness from the vertex extending inferiorly to the left anterior temporal region with mass effect to the underlying left cerebral hemisphere, mild subfalcine herniation, mild effacement of the left lateral ventricle and resulting 4 mm midline shift to the right. Basal cisterns are patent. Anaya-white matter differentiation is preserved. Atherosclerosis of the intracranial vasculature. No dense MCA sign. Status post bilateral cataract surgeries. Paranasal sinuses are clear. Mastoid air cells are clear. No acute fracture. Fatty atrophy of the left parotid gland. IMPRESSION: Left cerebral convexity holohemispheric acute subdural hematoma measuring approximately 12 mm in grea test thickness from the vertex extending inferiorly to the left anterior temporal region with mass ef fect to the underlying left cerebral hemisphere, mild subfalcine herniation, mild effacement of the l eft lateral ventricle and resulting 4 mm midline shift to the right. Thank you for allowing us to participate in the care of your patient. Dictated and Authenticated by: Manuelito Harley MD 03/14/2018 5:25 AM Central Time ([place] & [place]) FINAL REPORT HEAD CT WITHOUT CONTRAST: Date: 03/14/18 Time: 0410 hours COMPARISON: 03/13/18 at 1656 hours. HISTORY: Pain, re-evaluate subdural hematoma noted on recent head CT. FINDINGS: I agree with the preliminary report given by Dvei. There is an acute subdural hematoma on the left wh ich extends from the axial level of the mid brain through the axial level of the vertex. This subdura l hematoma measures up to 6.0 mm transverse dimension in the left occipital region, similar when comp ared to prior imaging. The posterior component near the vertex in the parietal region on the left tirso sures up to 1.2 cm in transverse dimension, definitely enlarged since the prior exam. The component s een in the lateral left temporal region measures up to 8.0 mm in transverse dimension, slightly worse kaya. There is midline shift from left to right which measures approximately 4.0 mm, which is similar when compared to the prior examination. There is mild effacement of the left lateral ventricle. IMPRESSION: Hemispheric left-sided subdural hematoma which has increased slightly in volume when compared to the prior exam. There is subfalcine herniation/left to right midline shift, mild and grossly unchanged. POS: [facility]
--- NOTE | 2018-03-14 11:17 | PRG ---
DATE OF SERVICE: 03/14/2018 SUBJECTIVE: Mr. Thomson is an 82-year-old man who fell from ground level position suffering left con vexity subdural hematoma. Repeat CT scan of the brain reveals slightly increased left-sided subdural hematoma, although the mid line shift appears to be stable or even slightly improved. Neurologically the patient has got Glasgo w coma scale of 15 and stable. He moves all extremities. He denies any headaches at this time. The patient is clearly oriented to person, time, and place. PHYSICAL EXAMINATION: VITAL SIGNS: This morning includes blood pressure 156/72, pulse is 66, respiratory rate is 10, tempe rature 97.8 degrees Fahrenheit, oxygen saturation 100% on room air. HEENT: Reveals pupils are equal, round, and reactive to light and accommodation. Extraocular muscle s are intact bilaterally. The patient has no sclerae icterus present. Oral mucosa is pink and moist . No lesions are noted. NECK: Supple. No palpable lymphadenopathy or thyromegaly present. HEART: Reveals regular rate and rhythm, no murmurs or gallops auscultated. CHEST: Clear to auscultation bilaterally. Breathing is regular and unlabored. ABDOMEN: Soft, nontender, nondistended. Liver and spleen nonpalpable below costal margin. EXTREMITIES: Reveals 2+ radial and pedal pulses bilaterally. Ankle edema is present. NEUROLOGIC: Reveals no focal deficits present. MUSCULOSKELETAL: Reveals 5/5 muscle strength in bilateral upper and lower extremities. The patient has no motor or sensory deficits identified. LABORATORY DATA: Today includes a CBC with 7800 white blood cells, hemoglobin and hematocrit stable at 11.6 and 35.8 respectively. Platelet count is 226,000. Metabolic profile: Sodium 140, potassium 3.7, chloride is 108, bicarbonate is 25, BUN is 8, creatini ne 0.61, glucose is 100. IMPRESSION: 1. Post-injury day #1 status post ground level fall. 2. Stable left convexity subdural hematoma. 3. Acute qualitative platelet dysfunction secondary to chronic aspirin intake. PLAN: 1. Continue with physical and occupational therapy. 2. Initiate evaluation by PM&R for possible post-discharge to inpatient rehabilitation. 3. We will transfuse the patient with some platelets given qualitative platelet dysfunction in the f dariana of a slightly progressive left-sided subdural hematoma. The above findings and plan discussed with the patient who indicates understanding of the information given. I have answered his questions.
--- NOTE | 2018-03-14 13:43 | CT ---
NONCONTRAST CT HEAD: Date: 03-14-18 History: Subdural hemorrhage. Follow up evaluation. Comparison: 03-14-18 at 0410 hours. FINDINGS: Previously described left sided subdural hematoma is again seen. Greatest transverse dimension is see n superiorly in a supraventricular location measuring 1.3 cm with a region measuring approximately 1. 2 cm in prior study. The differences in measurement are probably related to slice selection. More inf eriorly at the level of the lateral ventricles, the area of hemorrhage measures approximately 0.7 cm and previously measured 0.8 cm. The craniocaudal dimensions as well as AP dimensions of the subdural hematoma are stable from the prior study. There is persistent mild sulcal effacement in the left cerebral hemisphere as well as mild shift of t he midline structures to the right measuring 4 mm which is also an overall stable finding. No new are as of hemorrhage are seen. There is cerebral volume loss again present. CT of the head is otherwise stable when compared to the prior exam. IMPRESSION: 1. Overall stable left sided subdural hematoma with mass effect and stable degree of shift of the mid line structures to the right. POS: [facility]
[2018-03-14] MEDS: Donepezil HCl 5 MG TAB PO SCH (21:23)
[2018-03-14] MEDS: Atorvastatin Calcium 40 MG TAB PO SCH (21:23)
--- NOTE | 2018-03-14 22:23 | PRG ---
DATE OF SERVICE: 03/14/2018 SUBJECTIVE: I came back to see Mr. Thomson this evening. His CAT scan today showed collection in th e posterior parietal area with some more blood, but otherwise stability in the scan. OBJECTIVE: Clinically, Mr. Thomson is still wide awake. He has no receptive or expressive dysphasia . His alternating and rapid motions are performed just as rapidly and smoothly with the right hand a s that with the left. There is no facial asymmetry. There is no pronator drift. There is no neglec t. Mr. Thomson is doing well. His CAT scan showed subdural hemorrhage and a bit of shift, but the opera tion to remove this is a very large craniotomy. I would like to avoid that. The longer we wait the less effect of the aspirin he had prior to admission. If we could make it to 10-14 days and then he has any neurological deficit, then the operation could be done through fanny holes rather than a crani otomy. Hopefully, he does not need that either.
[2018-03-15] MEDS: hydrALAZINE 20 MG/ML VIAL SLOW IVP PRN ×2 (04:12→16:02)
[2018-03-15] MEDS: Acetaminophen 1,000 MG in Premix Bag 1 BAG IVPB SCH (06:08)
--- NOTE | 2018-03-15 07:13 | PRG ---
DATE OF SERVICE: 03/15/2018 I saw Mr. Thomson in his ICU room this morning. Neuro checks overnight have been stable. The record ed vital signs are reassuring with a T-max of 98.0 and a blood pressure is in the 140s to 150s. He h ad one blood pressure recorded at 198, but it was well controlled thereafter. Mr. Thomson is wide awake this morning. He has good normal cognitive function, he has normal recepti ve language function. He has normal expressive language function, he has normal cranial nerve functi on. Alternating rapid motions are performed rapidly and smoothly with both hands. There is no negle ct. There is no loss of cortical sensory function to double simultaneous stimulation. There is no p ronator drift. There is no lateralizing motor deficit. There is no facial asymmetry. Mr. Thomson looks better than his CT scans of the brain look, but he has remained stable for the last 24 hours. I think he can move to floor care. If he remains stable for another 24 hours on the floo r, then we can think about discharge thereafter.
[2018-03-15] MEDS: Carbidopa/Levodopa 25-100 mg Tablet PO SCH ×3 (08:33→20:43)
[2018-03-15] MEDS: Losartan 25 MG TAB PO SCH ×2 (08:33→20:43)
[2018-03-15] MEDS: Calcium Carbonate + Vit D 1 TAB PO SCH (08:33)
[2018-03-15] MEDS ORDERED: Melatonin 3 MG TAB PO PRN (09:43)
[2018-03-15] MEDS: Donepezil HCl 5 MG TAB PO SCH (20:43)
[2018-03-15] MEDS: Atorvastatin Calcium 40 MG TAB PO SCH (20:43)
[2018-03-16] MEDS: hydrALAZINE 20 MG/ML VIAL SLOW IVP PRN (05:32)
[2018-03-16] MEDS: Losartan 25 MG TAB PO SCH (09:03)
[2018-03-16] MEDS: Calcium Carbonate + Vit D 1 TAB PO SCH (09:03)
[2018-03-16] MEDS: Carbidopa/Levodopa 25-100 mg Tablet PO SCH (10:08)
--- NOTE | 2018-03-16 10:47 | PRG ---
DATE OF SERVICE: 03/16/2018. SUBJECTIVE: I saw Mr. Thomson in his hospital room this morning. He is day #3 for admission for a l eft subdural hematoma. His vitals overnight have shown no fevers. His T-max was 98.1. The patient did have one blood pressure reading of 167/90, which was treated and brought his blood pressure succe ssfully down to the 150s. Otherwise, his vitals have been stable. The patient denies any headache, dizziness or weakness. Neuro checks throughout the night have been normal. This morning, cranial nerves II through XII are intact. Patient is alert and oriented x3. He has a normal fund of knowledge and his speech is spontaneous. Strength and sensation are normal b ilateral in both upper and lower extremities. There is no pronator drift and alternating hand shows no asymmetry. ASSESSMENT AND PLAN: Mr. Thomson has shown no neurological changes during his hospital stay for subd ermal hematoma. He continues to be stable. I think that he would benefit from some time at rehab fa cility, if his family agrees, we can move forward with that plan.
[2018-03-16 11:38] VITALS: TEMP 98.4
--- NOTE | 2018-03-16 12:34 | PRG ---
DATE OF SERVICE: 03/16/2018 This is a 15 minute subsequent visit note in which 15 minutes were spent in review the imaging record , evaluation and examination of patient with greater than 50% of the time was spent in counseling on Mr. Drake Thomson. Mr. Thomson is neurologically intact today. They are making arrangements for transfer to an [facility] facility. I had spoken with Dr. Fine about perhaps patient needs a higher level of care. He wa s going to speak to the daughter in this regard. We will arrange appropriate followup in our neurosu rgical clinic in a couple weeks, he should remain off of any anticoagulant or antiplatelet medication s during this time.
[2018-03-16 13:22] VITALS: BP 114/59
--- NOTE | 2018-03-16 14:42 | PQF ---
CASSIDY JONAS MUNIRDEREKMEG [id number] CLINICAL DOCUMENTATION IMPROVEMENT CLARIFICATION FORM: ICD-10 Updated PLEASE DO AN ADDENDUM TO THE PROGRESS NOTE WITH ANY DOCUMENTATION UPDATES OR ADDITIONS AND CARRY THROUGH TO DC SUMMARY. THANK YOU. DATE: 03-16-18 ATTN: DR. GUNN Please exercise your independent, professional judgment in responding to the clarification form. Clinical indicators are provided on the bottom of this form for your review Please check appropriate box(s): [ x ] Cerebral edema / Vasogenic edema [x ] Compression of brain [ ] Other diagnosis [ ] Unable to determine For continuity of documentation, please document condition throughout progress notes and discharge summary. Thank You. CLINICAL INDICATORS - SIGNS / SYMPTOMS / LABS 03-13 CT BRAIN: LEFT SUBDURAL HEMATOMA OF THE ENTIRE LEFT CONVEXITY WITH MIDLINE SHIFT 03-13 CT BRAIN: LEFT CEREBRAL CONVEXITY HOLOHEMISPHERIC ACUTE SUBDURAL HEMATOMA - WITH MASS EFFECT TO THE UNDERLYING LEFT CEREBRAL HEMISPHERE, MILD SUBFALCINE HERNIATION, 4MM MIDLINE SHIFT TO RIGHT. RISK FACTORS 03-13 H&P: S/P FALL W/ SUBDURAL HEMATOMA TREATMENTS: CARDENE IV 03-13 HYDRALAZINE 03-14/03-15/03-16 NS 03-13/03-[address] OF BRAIN CONSULT OCCUPATIONAL THERAPY/ PHYSICAL THERAPY / SPEECH EVAL NEUROSURGERY CONSULT ICU MONITORING THANK YOU, MARY (This form is maintained as a part of the permanent medical record) 2014 [employer]. All Rights Reserved Mary Caicedo RN, BS [email or web address] [facility]
--- NOTE | 2018-03-17 02:53 | DIS ---
DATE OF ADMISSION: 03/13/2018 DATE OF DISCHARGE: 03/16/2018 ADMISSION DIAGNOSES: 1. Status post ground level fall. 2. Subdural hematoma. 3. Left elbow bursitis. 4. History of hypertension. 5. History of coronary artery disease. 6. History of Parkinson disease. 7. History of diabetes. DISCHARGE DIAGNOSES: 1. Status post ground level fall. 2. Subdural hematoma. 3. Left elbow bursitis. 4. History of hypertension. 5. History of coronary artery disease. 6. History of Parkinson disease. 7. History of diabetes. CONSULTANTS: Dr. Dawkins, Neurosurgery. HOSPITAL COURSE: Drake Thomson is an 82-year-old male who presented to [facility] after sustaining a fall. He was evaluated in the emergency room and found to have a subdural hematoma. He was admitt ed to ICU for close observation and monitoring. A repeat head CT showed interval enlargement of his CT scan; however, his GCS on arrival was 15 and remained of 15 throughout the duration of his hospita lization. CT scan later that day stabilized. The patient worked with PT and OT. He was evaluated b y Speech Therapy. Inpatient rehabilitation consult was placed and he was accepted and medically stab le for discharge as well as cleared by Neurosurgery for discharge on 03/16/2018. DISCHARGE DISPOSITION: Inpatient rehabilitation. DISCHARGE CONDITION: Fair. PHYSICAL EXAMINATION: VITAL SIGNS: Temperature 97.8, pulse 88, respiration rate 18, O2 sat 96% on room air, blood pressure 136/70. GENERAL: A well-developed elderly male in no acute distress, sitting in a chair, out of bed. PULMONARY: Normal work of breathing, symmetric rise. CARDIOVASCULAR: Regular rate and rhythm. GASTROINTESTINAL: Abdomen is soft, nontender, nondistended. MUSCULOSKELETAL: Moves all extremities x4. NEUROLOGIC: No focal deficit noted. DISCHARGE INSTRUCTIONS: Discharge instructions were provided to the patient and accepting facility. He is to remain off all anticoagulants and antiplatelets to include aspirin until cleared by Neurosu rgery. DISCHARGE MEDICATIONS: The patient was discharged on medications as documented in the electronic med ica record a list of which was provided to the accepting facility. FOLLOWUP APPOINTMENTS: The patient should follow up with his primary care provider as needed. He sh ould follow up with Dr. Dawkins after discharge from inpatient rehabilitation. He may call their o ffice for an appointment. He does not need to follow up formally with Dr. Blue, Trauma Services, [facility] may call our office with any questions. This is merely a summary of the patient's hospitalization. For more in-depth information, please see his medical record in its entirety.
--- NOTE | 2018-03-17 14:47 | EKG ---
Test Reason : FALL Blood Pressure : / mmHG Vent. Rate : 075 BPM Atrial Rate : 075 BPM P-R Int : 170 ms QRS Dur : 096 ms QT Int : 392 ms P-R-T Axes : 067 -42 -64 degrees QTc Int : 437 ms Sinus rhythm with Premature atrial complexes Left axis deviation Inferior infarct , age undetermined Abnormal ECG Confirmed by ANA LILIA CESAR ([id number]), publishing editor CLINTON ELIZONDO ([id number]) on 03/17/2018 2:47:17 PM Referred By: Confirmed By:ANA LILIA CESAR
== END 2018-03-16 14:36 | DRG 85 ==
LOC: ERS 16:23 → CCU 17:54 → 2SE 03-15 08:52
PROVIDERS: ADMIT Specialist; ATTEND Specialist
PROC: 30233R1 Transfusion of Nonautologous Platelets into Peripheral Vein, Percutaneous Approach (ICD-10-PCS; principal; 2018-03-14)
DX: S06.5X0A Traumatic subdural hemorrhage without loss of consciousness, initial encounter (principal); S06.1X0A Traumatic cerebral edema without loss of consciousness, initial encounter; W18.39XA Other fall on same level, initial encounter; Y93.89 Activity, other specified; Y92.009 Unspecified place in unspecified non-institutional (private) residence as the place of occurrence of the external cause; E11.9 Type 2 diabetes mellitus without complications; E78.5 Hyperlipidemia, unspecified; I49.3 Ventricular premature depolarization; M70.32 Other bursitis of elbow, left elbow; R29.6 Repeated falls; G20 Parkinson's disease; R40.2142 Coma scale, eyes open, spontaneous, at arrival to emergency department; R40.2252 Coma scale, best verbal response, oriented, at arrival to emergency department; R40.2362 Coma scale, best motor response, obeys commands, at arrival to emergency department; D69.1 Qualitative platelet defects; T39.015A Adverse effect of aspirin, initial encounter; Y92.9 Unspecified place or not applicable; I25.10 Atherosclerotic heart disease of native coronary artery without angina pectoris; Z95.1 Presence of aortocoronary bypass graft; Z87.19 Personal history of other diseases of the digestive system; Z87.891 Personal history of nicotine dependence; Z79.899 Other long term (current) drug therapy; Z79.82 Long term (current) use of aspirin; Z79.84 Long term (current) use of oral hypoglycemic drugs
CPT/HCPCS: 36415; 36416; 36430; 70450; 72125; 80048; 80053; 81003; 82553; 84484; 85025; 85610; 85730; 86850; 86900; 86901; 87086; 93005; 96365; 96366; G0390; G8978-GP-CL; G8979-GP-CJ; G8987-GO-CL; G8988-GO-CJ; G8996-GN-CH; G8997-GN-CH; J0131; J0360; J7050; P9035

== ENCOUNTER 2018-04-03 17:21 | Inpatient (IN) | payer MEDICARE ==
[2018-04-03] MEDS ORDERED: Ondansetron ODT 4 MG TAB ONE (18:55)
[2018-04-03 19:20] LABS: #Eosinphils 0.1 thou/uL (0.0-0.7); #Lymphocytes 0.9 thou/uL (1.20-3.40); #Monocytes 0.7 thou/uL (0.11-0.59); #Neutrophils 7.3 thou/uL (1.40-6.50); %Basophils 0.2 % (0.0-1.0); %Eosinophils 1.5 % (0.0-10.0); %Lymphocytes 10.2 % (21.0-51.0); %Monocytes 8.1 % (0.0-10.0); Hemoglobin 11.5 g/dL (14.0-18.0); Mean Corpuscular HGB CONC 33.2 g/dL (32.0-36.0); Mean Corpuscular Hemoglobin 29.6 pg (27.0-31.0); Mean Corpuscular Volume 89.1 fL (78.0-98.0); Mean Platelet Volume 6.6 fL (7.4-10.4); Platelet Count 257 thou/uL (130-400); RBC Distribution Width 12.8 % (11.5-14.5); Red Blood Cell (RBC) Count 3.87 mill/uL (4.70-6.10); White Blood Cell (WBC) Count 9.1 thou/uL (4.8-10.8)
[2018-04-03 19:31] LABS: Bilirubin Negative (Negative); Blood, Urine Negative (Negative); Clarity CLEAR (Clear); Glucose, Urine (Dipstick) Negative (Negative); Leukocyte Negative (Negative); Nitrite Negative (Negative); Protein, Urine (Dipstick) Trace mg/dL (Neg-Trace); Specific Gravity, Urine 1.025 (1.002-1.036); pH, Urine 6.5 (5.0-9.0)
--- NOTE | 2018-04-03 19:39 | RAD ---
CHEST ONE VIEW: HISTORY: Fall from standing. COMPARISON: Chest radiograph from 2018. FINDINGS: There are opacities in the left lung base, which are somewhat round. The right lung is relatively cl ear. No pneumothorax or effusion. No acute displaced rib fracture. IMPRESSION: Some round opacities in the left lung base may reflect infection or scarring. POS: [facility]
[2018-04-03 19:45] LABS: ALT (SGPT) 10 U/L (8-55); AST (SGOT) 19 U/L (5-34); Albumin 3.9 g/dL (3.4-4.8); Alkaline Phosphatase 97 U/L (40-150); Anion Gap 10 mmol/L (10-20); BUN (Urea Nitrogen) 17 mg/dL (8.4-25.7); Bilirubin, Total 0.3 mg/dL (0.2-1.2); CK (CPK) 42 U/L (30-200); Calc. Creatinine Clearance 0 mL/min (70-130); Calcium 9.9 mg/dL (7.8-10.44); Carbon Dioxide 28 mmol/L (23-31); Chloride 101 mmol/L (98-107); Estimated GFR-MDRD Greater than 90; Globulin 3.3 g/dL (2.4-3.5); Glucose 82 mg/dL (83-110); Potassium 5.3 mmol/L (3.5-5.1); Protein, Total 7.2 g/dL (5.8-8.1); Sodium 134 mmol/L (136-145)
[2018-04-03 19:47] LABS: CKMB 0.7 ng/mL (0-6.6); Troponin I Less than 0.010 ng/mL (< 0.028)
--- NOTE | 2018-04-03 19:49 | RAD ---
PELVIS ONE VIEW: HISTORY: Fall from standing. COMPARISON: None. FINDINGS: No acute displaced fracture or malalignment. The obturator rings are intact. The femoral heads and necks are intact. Mild vascular calcifications. IMPRESSION: No acute displaced fracture or malalignment. POS: [facility]
--- NOTE | 2018-04-03 20:47 | CT ---
CT BRAIN WITHOUT CONTRAST: HISTORY: Injury. COMPARISON: CT brain from 03/14/2018. FINDINGS: There is a subacute, subdural hematoma, which is increased in size from the comparison examination. The hematoma now measures up to 11 mm in transverse dimension. There is mild right to left midline s hift, approximately 13 mm, previously 4 mm. There is a loss of normal sulcation of the left temporal , parietal, and frontal lobes. There is dilatation of the ventricular system, similar to the compari son examination. Mild subfalcine herniation. IMPRESSION: Enlarging subdural hematoma, which, when using the same point of reference, the subdural hematoma has enlarged, as well as the left to right midline shift has worsened. Hydrocephalus is similar. CODE ELEANOR - ALICE MAYORGA AT 8:10 P.M. POS: [facility]
--- NOTE | 2018-04-03 20:48 | CT ---
CT CERVICAL SPINE WITHOUT CONTRAST: HISTORY: Fall. COMPARISON: CT cervical spine from 03/13/2018. FINDINGS: The occipital condyles are intact. The odontoid process is intact. Advanced degenerative changes of the facet joints bilaterally. Moderate narrowing of the disk spaces throughout the cervical spine. No acute displaced fracture or malalignment. There is some nodular scar in the posterior segment right upper lobe. The paranasal soft tissues are unremarkable. IMPRESSION: No acute displaced fracture or malalignment. POS: [facility]
--- NOTE | 2018-04-03 20:58 | CT ---
CT LUMBAR SPINE WITHOUT CONTRAST: HISTORY: Injury. Fall from standing. COMPARISON: Lumbar spine CT from 2017. FINDINGS: There is a new compression fracture of L1, which involves the anterior vertebral body and the posteri or vertebral body, with retropulsion, approximately 2 mm. At this level, the spinal canal is narrowe d to approximately 9 mm. There is sclerosis of this fracture. Acute on chronic fracture versus nailer hand ashwin remodeling is a possibility, as there was a fracture at this level back in 2017. There is narrowing of the L3-L4, L4-L5, and L5-S1 spinal canals due to posterior disk osteophyte comp lexes and ligamentum flavum hypertrophy, as well as neural foraminal narrowing at these levels, due t o facet arthrosis. L1 vertebral body fracture lines are still evident. No other acute fracture of the lumbar spine is a ppreciated. Although incompletely evaluated, there does appear to be ectasia of the abdominal aorta, which does m easure up to at least 2.8 cm and possibly larger. IMPRESSION: 1. Either acute on chronic L1 compression fracture versus chronic remodeling. There is a fracture o f L1 with approximately 50% anterior height loss, as well as retropulsion of 3 mm. This has progress ed from the prior examination of 2017. Fracture lines are still evident; therefore, acute superimpos ed upon chronic fracture is felt most likely. MRI would be more definitive, if clinically warranted. There is 2-3 mm retropulsion, as well as narrowing of the spinal canal to approximately 8 mm at thi s level. 2. Multifocal neural foraminal and spinal canal narrowing due to posterior disk osteophyte complexes and facet arthrosis of the lower lumbar spine. 3. Ectasia of the distal abdominal aorta, measuring up to at least 2.8 cm, although it may be larger , as it is incompletely evaluated on this examination. POS: [facility]
[2018-04-03] MEDS ORDERED: hydrALAZINE 20 MG/ML VIAL SLOW IVP PRN (21:16)
--- NOTE | 2018-04-03 21:39 | PRG ---
DATE OF SERVICE. 04/03/2018 Mr. Thomson is an 82-year-old man who was brought to the emergency department today after a fall at h is assisted living facility with a CT scan performed in the department that shows mixed density left cerebral convexity subdural hematoma measuring roughly 15 mm in greatest depth with an associated 7-8 mm midline shift. He was actually here roughly 2 weeks ago for a similar problem where he had a mos tly acute subdural hematoma. There was also mixed density after a fall, but this only measured 5 mm at depth with a roughly 5-6 mm midline shift; both of these have certainly increased. He reports to me that he has continued to take his aspirin over the interval between last ER visit and today, so th is certainly could be contributing. He does have a past medical history significant for Parkinson's disease that is likely contributing to his falls. Neurologically, appears to be at his baseline. He is communicative, alert and oriented x4. He has good motor function of the upper and lower extremit ies bilaterally, though he does have mild tremor at baseline. He has good court commissioner strength bilaterally. 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 PLAN: The patient will be admitted into the Trauma Service with recommendation on the IMCU with neur o checks q. 1 hour. Head of bed elevated at 30 degrees and systolic blood pressure maintained below 160. I do feel that he is likely on the border of possibly needing a subdural evacuation. I discuss ed this with him. He has understanding of this, but we will try to avoid doing so given his great ne urologic examination. I will repeat CT scan in the morning to evaluate this and upon rounds in the [facility], we will decide further what best plan of action will be. He will likely need a rehabilitatio n workup and placement for a period of time while he recuperates.
[2018-04-03] MEDS ORDERED: Azithromycin 500 MG VIAL ONE (22:09)
--- NOTE | 2018-04-04 00:21 | HP ---
DATE OF ADMISSION: 04/03/2018 REQUESTING PHYSICIAN: Hunter De León M.D. ATTENDING SURGEON: Denver Chan M.D. CONSULTATIONS: Neurosurgery, Dr. Mcdonough. HISTORY OF PRESENT ILLNESS: The patient is an 82-year-old man, who reportedly fell backwar ds today, striking his head. The patient resides at [facility] and was recently discharg ed from our facility approximately 2 weeks ago for similar fall in which he sustained a subdural [place]. Tonight, CT evaluation shows an acute on chronic subdural hematoma that is larger in size with a greater shift. Per recommendations from Neurosurgery, he will be admitted to the hospital for thiago quent neuro exams and the neurosurgical team will evaluate tomorrow whether he requires evacuation of his hematoma. The patient is unsure of his loss of consciousness, just he only remembers that he fe ll backwards. ALLERGIES: None. CURRENT MEDICATIONS: Losartan, glipizide, hydrochlorothiazide, metformin, calcium, atorvastatin, don epezil, aspirin, carbidopa/levodopa, and Flomax. PAST MEDICAL HISTORY: Type 2 diabetes, hyperlipidemia, hypertension, Parkinson's, coronary artery di sease. PAST SURGICAL HISTORY: Four-vessel coronary artery bypass graft. SOCIAL HISTORY: The patient reportedly drinks a glass of wine on occasion. There is no drug or smok ing history, again the patient is a resident at [place]. REVIEW OF SYSTEMS: Ten-point review of systems is negative, unless otherwise stated. PHYSICAL EXAMINATION: VITAL SIGNS: Blood pressure 169/90, heart rate 79, respirations 18, oxygen saturation is 98% on room air, and temperature is 98.5. GENERAL: The patient is resting comfortably in bed. He is awake, conversant and is oriented to pers on and place. His chief complaint currently is mild headache, but he declines any medication. HEENT: Head is normocephalic. There is a small contusion on his occiput, but does not appear to hav e an abrasion or laceration. Eyes are PERRLA. Extraocular motion is intact bilaterally. Ears are a traumatic without discharge. Nose is atraumatic without discharge. Oropharynx is clear. NECK: Nontender. Trachea is midline. No JVD. CHEST: Clear to auscultation with good inspiratory and expiratory effort. HEART: Regular rate and rhythm. ABDOMEN: Soft, flat, nontender with active bowel sounds. Pelvis is stable. EXTREMITIES: Neurovascularly intact x4. Lower extremities show 2+ pitting edema. Capillary refill is less than 3 seconds. Pulses are 2+. BACK: Nontender and atraumatic. LABORATORY FINDINGS: White blood cell count 9.1, hemoglobin 11.5, hematocrit 34.5, platelets 257. S odium 134, potassium 5.3, chloride 101, CO2 of 28, BUN 17, creatinine 0.77, glucose 82. LFTs are unr emarkable. CK-MB 0.7, troponin less than 0.010. Urinalysis is unremarkable. RADIOGRAPHS: CT of the brain without contrast shows enlarging subdural hematoma which when using the same point in reference to subdural hematoma as enlarge as well as the left to right midline shift h as worsened, hydrocephalus is similar to previous. CT of the C-spine without contrast shows no acute displaced fracture or malalignment. CT of the lumbar spine shows either an acute on chronic L1 comp ression fracture versus chronic remodeling. AP chest x-ray shows some round opacities in the left jhonathan ng base that may reflect infection or scarring. AP pelvis shows no acute displaced fracture or malal ignment. ASSESSMENT: 1. Status post fall. 2. Acute on chronic subdural hematoma with increasing size and midline shift. 3. Postconcussive headache. 4. History of multiple falls. 5. History of hypertension. 6. History of type 2 diabetes. 7. History of hyperlipidemia. 8. History of Parkinson's. PLAN: Plan will be to admit the patient to the intermediate care unit for frequent neuro exams. Rep eat head CT in the morning, evaluation by Dr. Mcdonough in the morning to discuss possible surgical inter vention versus discharge to rehabilitation. The patient will remain n.p.o. (08:40) nonnarcotic pain medication. The evaluation, examination, laboratory and radiographic findings will be discusse d with Dr. Chan after this dictation.
[2018-04-04] MEDS ORDERED: cefTRIAXone\\ROCEPHIN 1 GM VIAL ONE (00:49)
[2018-04-04] MEDS ORDERED: Dextrose 5% in Water 1,000 ML IV PRN (03:14)
[2018-04-04] MEDS ORDERED: Dextrose 50% Abboject 50 ML SYRINGE SLOW IVP PRN (03:14)
[2018-04-04] MEDS ORDERED: Ondansetron HCl/PF 4 MG/2 ML Vial IVP PRN (03:14)
[2018-04-04] MEDS ORDERED: Ondansetron ODT 4 MG TAB PO PRN (03:14)
[2018-04-04] MEDS ORDERED: hydrALAZINE 20 MG/ML VIAL ONE (03:19)
[2018-04-04 03:55] LABS: #Eosinphils 0.2 thou/uL (0.0-0.7); #Lymphocytes 1.2 thou/uL (1.20-3.40); #Monocytes 0.7 thou/uL (0.11-0.59); #Neutrophils 5.6 thou/uL (1.40-6.50); %Basophils 0.2 % (0.0-1.0); %Eosinophils 2.7 % (0.0-10.0); %Lymphocytes 15.3 % (21.0-51.0); %Monocytes 9.1 % (0.0-10.0); %Neutrophils 72.7 % (42.0-75.0); Hemoglobin 11.5 g/dL (14.0-18.0); Mean Corpuscular HGB CONC 33.3 g/dL (32.0-36.0); Mean Corpuscular Hemoglobin 29.9 pg (27.0-31.0); Mean Corpuscular Volume 89.8 fL (78.0-98.0); Mean Platelet Volume 6.2 fL (7.4-10.4); Platelet Count 235 thou/uL (130-400); RBC Distribution Width 12.7 % (11.5-14.5); Red Blood Cell (RBC) Count 3.85 mill/uL (4.70-6.10); White Blood Cell (WBC) Count 7.6 thou/uL (4.8-10.8)
[2018-04-04 04:07] LABS: INR-International Normal Ratio 1.1; PTT 26.3 SEC (22.9-36.1); Prothrombin Time 14.4 SEC (12.0-14.7)
[2018-04-04] MEDS ORDERED: Labetalol HCl 100 MG/20 ML VIAL ONE (04:10)
[2018-04-04 04:14] LABS: Anion Gap 9 mmol/L (10-20); BUN (Urea Nitrogen) 13 mg/dL (8.4-25.7); Calc. Creatinine Clearance 0 mL/min (70-130); Calcium 9.5 mg/dL (7.8-10.44); Carbon Dioxide 28 mmol/L (23-31); Chloride 105 mmol/L (98-107); Estimated GFR-MDRD Greater than 90; Glucose 91 mg/dL (83-110); Potassium 3.9 mmol/L (3.5-5.1); Sodium 138 mmol/L (136-145)
--- NOTE | 2018-04-04 10:22 | CT ---
PRELIMINARY REPORT/[facility]/EMERGENTY AFTER-HOURS PROCEDURE CT Head Without Intravenous Contrast CLINICAL HISTORY: 82 years old, male; Condition or disease; Other: Subdural hematoma; Patient HX: F/u subdural hematoma TECHNIQUE: Axial computed tomography images of the head/brain without intravenous contrast. COMPARISON: CT Brain WO Con 2018-04-03 20:02 FINDINGS: Brain: There is LEFT convexity subdural hematoma with hemorrhage of various stages, stable to slightl y increased from prior. There is stable mass effect resulting in midline shift of approximately 11 mm which is probably similar when accounting for differences in technique. No significant white matter disease. Ventricles: Normal. No ventriculomegaly. Bones/joints: Normal. No acute fracture. Soft tissues: Normal. Sinuses: Unremarkable as visualized. No acute sinusitis. Mastoid air cells: Unremarkable as visualized. No mastoid effusion. IMPRESSION: There is a LEFT convexity subdural hematoma and midline shift, stable to slightly increased from prio r. Thank you for allowing us to participate in the care of your patient. Dictated and Authenticated by: Rakan Pineda MD 04/04/2018 5:38 AM Central Time ([place] & [place]) FINAL REPORT CT BRAIN WITHOUT CONTRAST: I agree with the preliminary report given by Dr. Rakan Pineda_of [facility]. POS: [facility]
[2018-04-04] MEDS ORDERED: Thrombin 5000 UNITS/5 ML VIAL ONE (10:54)
[2018-04-04] MEDS ORDERED: Lidocaine 0.5%/Epinephrine 1:200,000 50 ml Vial ONE (10:54)
[2018-04-04] MEDS ORDERED: CEFAZOLIN/Water 2 GM/20 ML SYRINGE ONE (11:25)
--- NOTE | 2018-04-04 11:38 | CON ---
DATE OF CONSULTATION: 04/04/2018 Mr. Thomson is an 82-year-old gentleman that presents with a worsening headache. He had a CT scan pe rformed of the brain, which revealed a large acute on chronic subdural hematoma with midline shift. He does take 81 mg of aspirin on a daily basis. Other than headache and his baseline Parkinson's dis ease, he appears to be neurologically at baseline. Given the degree of blood product and associated shift, I believe that important to move forward with a fanny hole evacuation of the subdural hematoma. I discussed this with the patient as well as his d Mari costa. They asked questions, I answered those questions. I did discuss risks, benefits, and alternatives, and informed consent was provided.
[2018-04-04] MEDS ORDERED: Lidocaine 1% PF 5 ML VIAL ONE (11:41)
[2018-04-04] MEDS ORDERED: PROPOFOL 200 MG/20 ML VIAL ONE (11:41)
[2018-04-04] MEDS ORDERED: ePHEDrine/0.9% NaCl/PF SYRINGE 50 mg/10 ml ONE (11:41)
[2018-04-04] MEDS ORDERED: PHENYLEPHRINE-NS 100 MCG/ML 10 ML SYRINGE ONE (11:41)
[2018-04-04] MEDS ORDERED: Ondansetron HCl/PF 4 MG/2 ML Vial ONE (11:41)
[2018-04-04] MEDS ORDERED: Fentanyl 100 MCG/2 ML VIAL ONE (11:42)
[2018-04-04] MEDS ORDERED: Bacitracin Zinc Ointment 30 gm TUBE ONE (12:14)
[2018-04-04] MEDS ORDERED: Acetaminophen 325 MG TAB PO PRN (12:20)
--- NOTE | 2018-04-04 12:24 | OP ---
DATE OF PROCEDURE: 04/04/2018 SURGEON: Jadon Mcdonough M.D. INSURANCE LEGAL ASSISTANT: Tor Ramires PA-C. INDICATION: Prevent neurologic decline. PREOPERATIVE DIAGNOSES: Large left chronic on acute subdural hematoma. PROCEDURE: Left frontal fanny hole with evacuation of hematoma. ANESTHESIA: General. TECHNIQUE: The patient was brought into the operating room and placed under general anesthesia. He was placed on the table in supine position. A small linear incision was planned over the left fronta l bone. After prepping and draping and after an appropriate operative pause, the incision was create d. A self-retaining retractor was placed. A bur hole was placed. A cruciate incision was placed wi thin the dura. There was immediate egress of fluid consistent with a chronic subdural hematoma. Irr igant was used to irrigate the subdural space. A red rubber tube was then placed within the subdural space and brought out through a separate puncture site from within the skin. The wound was then irr igated. Hemostasis was maintained throughout. The wound was then closed in anatomic layers and a pr essure dressing was applied. There were no known procedural complications.
[2018-04-04 14:38] VITALS: BMI 21.1
[2018-04-04] MEDS ORDERED: HumaLOG 300 UNITS/3 ML VIAL SC PRN (16:57)
[2018-04-04] MEDS: Sodium Chloride 0.9% 1,000 ML IV SCH (17:09)
--- NOTE | 2018-04-04 18:43 | PRG ---
DATE OF SERVICE: 04/04/2018 SUBJECTIVE: This is an 82-year-old male status post ground-level fall, who was admitted yesterday wi th acute on chronic subdural hematoma. The patient was taken to the operating room earlier today wit h Neurosurgery. Postoperatively, he is doing well with minimal pain. There is serosanguineous drain age from his surgical drain. Otherwise, he vocalized no complaint. OBJECTIVE: VITAL SIGNS: Temperature 98, pulse 72, blood pressure 126/63, respirations 18, O2 sat 95% on room ai r. GENERAL: Well-developed elderly male in no acute distress, resting in bed. HEAD: Surgical dressing is clean, dry, and intact. PULMONARY: Normal work of breathing. Symmetric rise. CARDIOVASCULAR: Regular rate and rhythm. GASTROINTESTINAL: Abdomen soft, nontender, nondistended. MUSCULOSKELETAL: Moves all extremities x4. NEUROLOGIC: No focal deficit noted. GCS 15. LABORATORY FINDINGS: WBC 7.6, hemoglobin 11.5, hematocrit 34.6, platelet count 235. Sodium 138, pot assium 3.9, chloride 105, carbon dioxide 28, BUN 13, creatinine 0.67, glucose 91. ASSESSMENT: 1. Status post ground-level fall. 2. Acute on chronic subdural hematoma, postop day 0 status post fanny hole evacuation. 3. Acute traumatic pain. 4. Weakness and debility. 5. History of hypertension. 6. History of diabetes. 7. History of hyperlipidemia. 8. History of Parkinson. PLAN: Continue in ICU for closer monitoring. The patient should have q.1 hour neuro checks. We ken l initiate PT, OT, and speech tomorrow on postop day #1. Supportive care as ordered. Family at [facility] was updated and all questions were answered. The patient was discussed with Dr. Blue.
[2018-04-04] MEDS: CEFAZOLIN/Water 2 GM/20 ML SYRINGE SLOW IVP SCH (20:49)
[2018-04-05] MEDS: Sodium Chloride 0.9% 1,000 ML IV SCH ×4 (01:40→21:04)
[2018-04-05] MEDS: CEFAZOLIN/Water 2 GM/20 ML SYRINGE SLOW IVP SCH ×2 (03:54→15:00)
[2018-04-05 05:07] LABS: #Eosinphils 0.3 thou/uL (0.0-0.7); #Lymphocytes 1.1 thou/uL (1.20-3.40); #Monocytes 0.8 thou/uL (0.11-0.59); #Neutrophils 5.8 thou/uL (1.40-6.50); %Basophils 0.5 % (0.0-1.0); %Eosinophils 3.7 % (0.0-10.0); %Lymphocytes 13.1 % (21.0-51.0); %Monocytes 10.3 % (0.0-10.0); %Neutrophils 72.5 % (42.0-75.0); Hemoglobin 10.6 g/dL (14.0-18.0); Mean Corpuscular HGB CONC 33.3 g/dL (32.0-36.0); Mean Corpuscular Volume 90.2 fL (78.0-98.0); Mean Platelet Volume 6.5 fL (7.4-10.4); Platelet Count 221 thou/uL (130-400); RBC Distribution Width 12.8 % (11.5-14.5); Red Blood Cell (RBC) Count 3.53 mill/uL (4.70-6.10)
[2018-04-05 05:27] LABS: Anion Gap 10 mmol/L (10-20); BUN (Urea Nitrogen) 10 mg/dL (8.4-25.7); Calc. Creatinine Clearance 90 mL/min (70-130); Calcium 8.7 mg/dL (7.8-10.44); Carbon Dioxide 22 mmol/L (23-31); Chloride 108 mmol/L (98-107); Estimated GFR-MDRD Greater than 90; Glucose 92 mg/dL (83-110); Potassium 3.9 mmol/L (3.5-5.1); Sodium 136 mmol/L (136-145)
--- NOTE | 2018-04-05 09:10 | PRG ---
DATE OF SERVICE: 04/05/2018. SUBJECTIVE: Mr. Thomson is an 82-year-old gentleman that is now 1 day status post fanny hole evacuati on of an acute on chronic subdural hematoma. He has been in the ICU overnight and has remained stabl e neurologically. He is at baseline. His drain remains patent overnight. I removed the subdural dr dunn. I also removed the bandage, which revealed a clean, dry, and intact incision. The plan will be to transition him from the ICU to the floor today. He should resume all home based medications with the exception of his antiplatelet agents. He will likely benefit from PT and OT as well.
[2018-04-05] MEDS: Carbidopa/Levodopa 25-250 mg Tablet PO SCH ×2 (15:00→21:03)
[2018-04-05] MEDS: Labetalol HCl 100 MG/20 ML VIAL SLOW IVP PRN (15:01)
--- NOTE | 2018-04-05 15:47 | PRG ---
DATE OF SERVICE: 04/05/2018 SUBJECTIVE: This is an 82-year-old male status post ground level fall, on hospital day #2, postop da y #1, status post fanny hole evacuation of acute on chronic subdural hematoma. Postoperatively, the p john has been doing well. He was seen earlier this morning by Neurosurgery and transferred to the surgical floor. His drain is then removed. Upon my evaluation, he vocalized no complaint. Patient' s family at bedside is concerned regarding resuming patient's home medications. OBJECTIVE: VITAL SIGNS: Heart rate 63, blood pressure 170/76, respiratory rate 23, O2 sat 94%-97% on room air. GENERAL: Elderly appearing male in no acute distress, resting in bed. HEAD: Surgical site is clean, dry, and intact. PULMONARY: Normal work of breathing. Symmetric rise. CARDIOVASCULAR: Regular rate and rhythm. GASTROINTESTINAL: Abdomen is soft, nontender and nondistended. MUSCULOSKELETAL: Moves all extremities x4. NEUROLOGIC: No focal deficit noted. GCS is 15. LABORATORY DATA: WBC 8.0, hemoglobin 10.6, hematocrit 31.8, and platelet count 221. Sodium 136, pot assium 3.9, chloride 108, carbon dioxide 22, BUN 10, creatinine 0.64, glucose 92. ASSESSMENT: 1. Status post ground level fall. 2. Acute on chronic subdural hematoma, postop day #1 status post fanny hole evacuation. 3. Acute traumatic pain. 4. Weakness and debility. 5. History of Parkinson's. 6. History of hypertension. 7. History of diabetes. 8. History of hyperlipidemia. PLAN: The patient has now been transferred to the surgical floor. Initiate PT, OT, and speech evalu ation. The patient should be seen by case management for assistance with disposition. Per patient's family, they would like for the patient to go home with them. They would be amenable to skilled [facility] should PT recommended; however, they are not interested in being seen or evaluated by [facility] as they have been there multiple times in the past and felt as o [facility] it was not beneficial for the patient. Resume home medications. We will hold oral anti-hypergly cemics until p.o. intake has stabilized. Otherwise, supportive care as ordered. The patient was dis cussed with Dr. Blue. Family at bedside was updated and all questions were answered at the time of this dictation.
[2018-04-05] MEDS ORDERED: traMADol HCl 50 MG TAB PO PRN (16:03)
[2018-04-05] MEDS ORDERED: Atorvastatin Calcium 40 MG TAB PO SCH (21:00)
[2018-04-05] MEDS ORDERED: Donepezil HCl 5 MG TAB PO SCH (21:00)
[2018-04-05] MEDS: Losartan 25 MG TAB PO SCH (21:03)
[2018-04-06] MEDS: Labetalol HCl 100 MG/20 ML VIAL SLOW IVP PRN ×3 (04:16→16:59)
[2018-04-06] MEDS: Sodium Chloride 0.9% 1,000 ML IV SCH ×2 (06:48→16:58)
[2018-04-06] MEDS ORDERED: Tamsulosin HCl 0.4 MG CAP PO SCH (09:00)
[2018-04-06] MEDS ORDERED: Calcium Carbonate + Vit D 1 TAB PO SCH (09:00)
[2018-04-06] MEDS: Losartan 25 MG TAB PO SCH (09:08)
[2018-04-06] MEDS: Carbidopa/Levodopa 25-250 mg Tablet PO SCH ×2 (09:09→15:59)
[2018-04-06] MEDS ORDERED: Polyethylene Glycol 3350 17 GM Packet PO SCH (10:15)
[2018-04-06 15:41] VITALS: TEMP 98.2
[2018-04-06 17:22] VITALS: BP 136/73
[2018-04-06] MEDS ORDERED: Senokot S 8.6-50 MG TAB PO SCH (21:00)
[2018-04-07] MEDS ORDERED: Polyethylene Glycol 3350 17 GM Packet PO SCH (09:00)
--- NOTE | 2018-04-07 10:59 | DIS ---
DATE OF ADMISSION: 04/03/2018 DATE OF DISCHARGE: 04/06/2018 ADMISSION DIAGNOSES: 1. Status post multiple falls. 2. Acute on chronic subdural hematoma. 3. History of Parkinson's. 4. Post-concussive headache. 5. Diabetes. 6. Hypertension. 7. Hyperlipidemia. DISCHARGE DIAGNOSES: 1. Status post multiple falls. 2. Acute on chronic subdural hematoma. 3. History of Parkinson's. 4. Post-concussive headache. 5. Diabetes. 6. Hypertension. 7. Hyperlipidemia. CONSULTANTS: Dr. Mcdonough, neurosurgery. PROCEDURES: On 04/04/2018, fanny hole evacuation of acute on chronic left subdural hematoma with Dr. Mcdonough. HOSPITAL COURSE: Drake Thomson is an 82-year-old male who presented to [place] status post mecha nical fall. Patient has been seen by our team in the past for subdural hematoma after a fall. He wa s evaluated in the emergency room and found to have an acute on chronic subdural. Neurosurgery evalu ated the patient and taken for operative intervention to his injury on 04/04/2018. Postoperatively, the patient was returned to the ICU in satisfactory condition. He remained a GCS throughout the enti re duration of his hospital course. Postop day #1, his drain was removed and he was transferred to [facility] surgical floor. He worked with physical therapy and occupational therapy. Postop day #2, he was medically stable for discharge. He was evaluated by inpatient rehab and accepted on 04/06/2018. DISPOSITION: Inpatient rehabilitation. DISCHARGE CONDITION: Fair. PHYSICAL EXAMINATION: VITAL SIGNS: Temperature 98.2, pulse 93, respirations 14, O2 sat 97% on room air, blood pressure 169 /95. GENERAL: Well-developed elderly male in no acute distress, resting in bed. PULMONARY: Normal work of breathing, symmetric rise. HEAD: Left surgical site is clean, dry, and intact. CARDIOVASCULAR: Regular rate and rhythm. GI: Abdomen is soft, nontender, nondistended. MUSCULOSKELETAL: Moves all extremities x4. NEUROLOGIC: No focal deficit is noted. GCS is 15. DISCHARGE INSTRUCTIONS: Discharge instructions were provided to the patient in the accepting facilit y. He should keep his wound clean and dry. Suture removal/staple removal per Neurosurgery. He shou ld work with physical therapy, occupational therapy, and speech language pathology for cognition. DISCHARGE MEDICATIONS: Discharge medications were as documented in the electronic medical record a l ist of which was provided to the accepting facility. He may resume all his home medications with the exception of any antiplatelets or anticoagulants. He should refrain from either any of these types of medications until cleared by Neurosurgery. FOLLOWUP APPOINTMENTS: Patient is to follow up with his primary care provider for diabetes and hyper tension. He should follow up with Neurosurgery as directed by their team. He does not need to follo w up formally with Trauma Services, but may call our office with any questions. This is merely a sum huey of the patient's hospitalization. For more in depth information, please see his medical record in its entirety.
== END 2018-04-06 18:57 | DRG 27 ==
LOC: ERS 17:21 → ERHOLD 22:08 → SURG A 04-04 10:43 → CCU 04-04 13:10 → SJJU 04-05 10:49
PROVIDERS: ADMIT Surgery; ATTEND Surgery
PROC: 00C40ZZ Extirpation of Matter from Intracranial Subdural Space, Open Approach (ICD-10-PCS; principal; 2018-04-04)
DX: S06.5X9A Traumatic subdural hemorrhage with loss of consciousness of unspecified duration, initial encounter (principal); R53.1 Weakness; R53.81 Other malaise; G20 Parkinson's disease; I10 Essential (primary) hypertension; E11.9 Type 2 diabetes mellitus without complications; E78.5 Hyperlipidemia, unspecified; W01.0XXA Fall on same level from slipping, tripping and stumbling without subsequent striking against object, initial encounter; Y93.9 Activity, unspecified; Y92.9 Unspecified place or not applicable; Y99.9 Unspecified external cause status
CPT/HCPCS: 36415; 36416; 70450; 71045; 72125; 72131; 72170; 80048; 80053; 81003; 82550; 82553; 83880; 84484; 85025; 85610; 85730; 93005; 94760; 96361; 96365; 96366; 96367; 96375; 96376; G0390; G8978-GP-CL; G8979-GP-CJ; G8987-GO-CM; G8988-GO-CJ; G8996-GN-CH; G8997-GN-CH; J0360; J0456; J0696; J2001; J2270; J2405; J2704; J3010; Q0162

== ENCOUNTER 2018-05-16 09:44 | Emergency (ER) | payer MEDICARE ==
[2018-05-16 10:06] LABS: #Eosinphils 0.1 thou/uL (0.0-0.7); #Monocytes 0.4 thou/uL (0.11-0.59); #Neutrophils 5.6 thou/uL (1.40-6.50); %Basophils 0.2 % (0.0-1.0); %Eosinophils 1.8 % (0.0-10.0); %Lymphocytes 13.8 % (21.0-51.0); %Monocytes 6.2 % (0.0-10.0); Hemoglobin 12.9 g/dL (14.0-18.0); Mean Corpuscular HGB CONC 32.9 g/dL (32.0-36.0); Mean Corpuscular Hemoglobin 30.1 pg (27.0-31.0); Mean Corpuscular Volume 91.5 fL (78.0-98.0); Mean Platelet Volume 6.5 fL (7.4-10.4); Platelet Count 179 thou/uL (130-400); RBC Distribution Width 14.1 % (11.5-14.5); Red Blood Cell (RBC) Count 4.28 mill/uL (4.70-6.10); White Blood Cell (WBC) Count 7.2 thou/uL (4.8-10.8)
[2018-05-16 10:30] LABS: Bilirubin Negative (Negative); Blood, Urine Negative (Negative); Clarity CLOUDY (Clear); Glucose, Urine (Dipstick) Negative (Negative); Leukocyte Negative (Negative); Nitrite Negative (Negative); Protein, Urine (Dipstick) Trace mg/dL (Neg-Trace); Specific Gravity, Urine 1.016 (1.002-1.036)
[2018-05-16 10:31] LABS: ALT (SGPT) Less than 7 U/L (8-55); AST (SGOT) 13 U/L (5-34); Albumin 3.8 g/dL (3.4-4.8); Alkaline Phosphatase 128 U/L (40-150); Anion Gap 9 mmol/L (10-20); BUN (Urea Nitrogen) 12 mg/dL (8.4-25.7); Bilirubin, Total 0.6 mg/dL (0.2-1.2); Calc. Creatinine Clearance 0 mL/min (70-130); Calcium 10.1 mg/dL (7.8-10.44); Carbon Dioxide 29 mmol/L (23-31); Chloride 105 mmol/L (98-107); Estimated GFR-MDRD 79; Globulin 2.5 g/dL (2.4-3.5); Glucose 151 mg/dL (83-110); Protein, Total 6.3 g/dL (5.8-8.1); Sodium 139 mmol/L (136-145)
[2018-05-16 10:35] LABS: Troponin I Less than 0.010 ng/mL (< 0.028)
--- NOTE | 2018-05-16 11:46 | CT ---
CT BRAIN NONCONTRAST: DATE: 05/16/18. TIME: 10:47 a.m. HISTORY: An 82-year-old male status post acute head trauma from multiple falls. FINDINGS: There is a left frontal fanny hole, which first appeared on the CT of 05/06/18. It is presumably the ro [place] of evacuation of the previously demonstrated left subdural hematoma that was demonstrated on . Currently, there is no subdural, epidural, subarachnoid, or intraaxial acute hemorrhage. There is moderate dilation of the lateral and third ventricles. The 4th ventricle is at the upper limits o f normal in size. This ventriculomegaly has not significantly changed compared to 05/06/18. It is eit her stable or minimally larger than on 02/14/17. This ventriculomegaly is probably on an ex vacuo bas is, due to diffuse brain parenchymal volume loss. There is a smaller possibility that this could rep resent normal-pressure hydrocephalus, but clinical correlation is recommended. No mass effect or mid line shift. No large cerebral infarction identified. No acute calvarial fracture. Visualized porti ons of the paranasal sinuses and tympanomastoid cavities are grossly clear. IMPRESSION: 1. No acute intracranial findings. 2. Left frontal fanny hole. 3. Ventriculomegaly. REJI Louis POS: [facility]
--- NOTE | 2018-05-16 12:04 | CT ---
CT CERVICAL SPINE WITH CORONAL AND SAGITTAL REFORMATIONS: HISTORY: Trauma, fall. COMPARISON: 05/06/18. FINDINGS: Multilevel degenerative changes are again seen. No acute fracture or subluxation is identified. No f acet malalignment is seen. POS: [facility]
--- NOTE | 2018-05-20 10:46 | EKG ---
Test Reason : Blood Pressure : / mmHG Vent. Rate : 087 BPM Atrial Rate : 087 BPM P-R Int : 176 ms QRS Dur : 090 ms QT Int : 356 ms P-R-T Axes : 058 -48 -84 degrees QTc Int : 428 ms Normal sinus rhythm with sinus arrhythmia Possible Left atrial enlargement Left anterior fascicular block Possible Inferior infarct , age undetermined Abnormal ECG Confirmed by KAYLYNN QUESADA, MICHELLE Chong ([id number]), newspaper photo editor HARINDER LATHAM ([id number]) on 05/20/2018 10:46:04 AM Referred By: Confirmed By:MICHELLE CHAIDEZ MD
== END 2018-05-16 16:12 | disposition home or self-care (01) ==
LOC: ERS 09:44
DX: S00.03XA Contusion of scalp, initial encounter (principal); S30.810A Abrasion of lower back and pelvis, initial encounter; S40.811A Abrasion of right upper arm, initial encounter; E11.9 Type 2 diabetes mellitus without complications; E78.5 Hyperlipidemia, unspecified; I10 Essential (primary) hypertension; Z79.899 Other long term (current) drug therapy; Z79.82 Long term (current) use of aspirin; Z79.84 Long term (current) use of oral hypoglycemic drugs; W18.30XA Fall on same level, unspecified, initial encounter
CPT/HCPCS: 36416; 70450; 72125; 80053; 81003; 84484; 85025; 93005

== ENCOUNTER 2018-05-25 13:58 | Outpatient (CLI) | payer MEDICARE ==
--- NOTE | 2018-05-25 16:01 | CT ---
NONCONTRAST HEAD CT 05/25/18 HISTORY: Followup subdural hematoma. COMPARISON: 05/16/18. FINDINGS: Stable fanny hole defect along the left frontal calvarium. Otherwise, calvarium is unremarkable. Adequ ate aeration of the sinuses and mastoid air cells. No parenchymal hemorrhage. No extra-axial hematoma. No midline shift. Basilar cisterns are patent. Ag e appropriate atrophy. Cortical ho-white matter differentiation preserved. Stable configuration of the ventricular system. IMPRESSION: 1. No acute intracranial process. 2. Stable enlargement of the ventricular system. POS: [facility]
== END 2018-05-25 13:59 | disposition home or self-care (01) ==
LOC: TBSIIMAG 13:58
PROVIDERS: ATTEND Neurological Surgery
DX: S06.5X0A Traumatic subdural hemorrhage without loss of consciousness, initial encounter (principal); G93.89 Other specified disorders of brain
CPT/HCPCS: 70450

== ENCOUNTER 2018-05-29 10:09 | Emergency (ER) | payer MEDICARE ==
--- NOTE | 2018-05-29 12:06 | RAD ---
3 VIEWS LEFT SHOULDER: Date: 05/29/18 HISTORY: Injury after fall 1 day ago. FINDINGS: The coracoclavicular and acromioclavicular distances are within normal limits. No fracture or disloca tion is seen involving the left shoulder. Calcification is seen adjacent to the greater tuberosity wh ich may represent calcific peritendinitis. Postsurgical changes related to median sternotomy are seen . Two metallic densities are seen overlying the left upper chest at the level of the posterior first rib, which may be related to overlying artifact. These metallic densities were not seen on CT exam on 05/06/18. IMPRESSION: No acute osseous abnormality left shoulder. POS: [facility]
[2018-05-29] MEDS ORDERED: Ketorolac Tromethamine 30 MG/ML VIAL ONE (12:52)
== END 2018-05-29 13:15 | disposition home or self-care (01) ==
LOC: ERS 10:09
DX: S51.012A Laceration without foreign body of left elbow, initial encounter (principal); M25.512 Pain in left shoulder; E11.9 Type 2 diabetes mellitus without complications; E78.5 Hyperlipidemia, unspecified; I10 Essential (primary) hypertension; G20 Parkinson's disease; Z79.891 Long term (current) use of opiate analgesic; Z79.82 Long term (current) use of aspirin; Z79.899 Other long term (current) drug therapy; W19.XXXA Unspecified fall, initial encounter
CPT/HCPCS: 96372; J1885

== ENCOUNTER 2018-06-06 09:38 | Inpatient (IN) | payer MEDICARE ==
[2018-06-06 10:34] LABS: #Eosinphils 0.1 thou/uL (0.0-0.7); #Lymphocytes 0.9 thou/uL (1.20-3.40); #Monocytes 0.5 thou/uL (0.11-0.59); #Neutrophils 6.7 thou/uL (1.40-6.50); %Basophils 0.2 % (0.0-1.0); %Eosinophils 1.3 % (0.0-10.0); %Lymphocytes 11.1 % (21.0-51.0); %Monocytes 6.4 % (0.0-10.0); Hemoglobin 12.1 g/dL (14.0-18.0); Mean Corpuscular Hemoglobin 30.8 pg (27.0-31.0); Mean Corpuscular Volume 90.6 fL (78.0-98.0); Mean Platelet Volume 6.9 fL (7.4-10.4); Platelet Count 208 thou/uL (130-400); RBC Distribution Width 13.5 % (11.5-14.5); Red Blood Cell (RBC) Count 3.93 mill/uL (4.70-6.10); White Blood Cell (WBC) Count 8.3 thou/uL (4.8-10.8)
[2018-06-06 10:57] LABS: ALT (SGPT) Less than 7 U/L (8-55); AST (SGOT) 11 U/L (5-34); Acetaminophen Less than 6.0 mcg/mL (10.0-30.0); Albumin 3.7 g/dL (3.4-4.8); Alcohol Less than 10 mg/dL (Less than 10); Alkaline Phosphatase 126 U/L (40-150); Anion Gap 11 mmol/L (10-20); BUN (Urea Nitrogen) 15 mg/dL (8.4-25.7); Bilirubin, Total 0.5 mg/dL (0.2-1.2); Calc. Creatinine Clearance 0 mL/min (70-130); Calcium 9.7 mg/dL (7.8-10.44); Carbon Dioxide 24 mmol/L (23-31); Chloride 105 mmol/L (98-107); Estimated GFR-MDRD Greater than 90; Globulin 2.7 g/dL (2.4-3.5); Glucose 177 mg/dL (83-110); Lipase 22 U/L (8-78); Protein, Total 6.4 g/dL (5.8-8.1); Salicylate Less than 8.0 mg/dL (15.0-30.0); Sodium 136 mmol/L (136-145)
[2018-06-06 11:01] LABS: CKMB 0.8 ng/mL (0-6.6); Troponin I Less than 0.010 ng/mL (< 0.028)
--- NOTE | 2018-06-06 11:34 | CT ---
CT BRAIN NONCONTRAST: 06/06/2018 11:19 a.m. HISTORY: An 83-year-old male, status post medication overdose. Generalized weakness. COMPARISON: 05/25/2018 FINDINGS: There is no midline shift or any other mass effect. There is no evidence of acute intracranial hemor rhage, large cortical infarct, or extraaxial fluid collection. Again noted is the left frontal bur h ole. There is no acute calvarial fracture. There is diffuse parenchymal volume loss. There are low attenuation areas in the white matter. These are nonspecific, but in a patient of this age, they ar e probably chronic ischemic white matter changes due to microvascular atherosclerosis. There is mode rate ventriculomegaly involving the lateral ventricles and moderate to severe ventriculomegaly involv ing the third ventricle. No interval change overall. IMPRESSION: 1) No acute intracranial findings. 2) Involutional changes and chronic ischemic white matter changes. 3) Ventriculomegaly. 4) Old left frontal bur hole. 5) No interval change overall. maile [] POS: [facility]
--- NOTE | 2018-06-06 12:11 | RAD ---
FOUR VIEWS LEFT ELBOW: Comparison: 03-13-18 History: Fall with left elbow pain. FINDINGS: Four views of the left elbow shows no evidence of acute fracture or dislocation. No elbow effusion is seen. No degenerative changes are present. IMPRESSION: No evidence of acute osseous abnormality. POS: [facility]
--- NOTE | 2018-06-06 12:14 | RAD ---
LEFT SHOULDER THREE VIEWS: HISTORY: Fall at [facility] with left shoulder pain. COMPARISON: 05/29/2018 FINDINGS: Three views of the left shoulder show lucency extending through the glenoid and scapula, which may re present a fractured scapula extending into the glenohumeral joint. This was not seen on the prior ex am. No dislocation is seen. The visualized left thorax is unremarkable. IMPRESSION: Possible fracture of the scapula involving the glenoid. POS: [facility]
[2018-06-06 13:27] LABS: Bilirubin Negative (Negative); Blood, Urine Negative (Negative); Clarity CLOUDY (Clear); Glucose, Urine (Dipstick) Negative (Negative); Leukocyte Negative (Negative); Nitrite Negative (Negative); Protein, Urine (Dipstick) Negative (Neg-Trace); Specific Gravity, Urine 1.033 (1.002-1.036); Urobilinogen 0.2 mg/dL (0.2-1.0); pH, Urine 7.5 (5.0-9.0)
--- NOTE | 2018-06-06 13:34 | CT ---
CT THORAX WITH CONTRAST: 06/06/2018 12:38 p.m. HISTORY: An 83-year-old male, status post acute chest trauma from a fall. COMPARISON: 05/06/2018 FINDINGS: There is a new fracture of the left scapula, with mostly nondisplaced components, which begins as an intraarticular component at the left glenoid, and propagates posteriorly and inferiorly along the bod y of the left scapula, with areas of minimal displacement. This is associated with a new hemarthrosi s of the left glenohumeral joint, and edema in the muscle surrounding the left scapula. The previously noted, then acute, displaced fractures at the lateral aspects of the left 6th and 7th ribs, now have surrounding callus. Again noted are the nonacute healing fractures of the proximal posteromedial aspects of the right 10t h and 11th ribs, with callus. Again noted are the sternotomy wires. There is no pulmonary contusion or other air space density. N o pulmonary edema. No pleural effusion or pneumothorax. No thoracic aortic aneurysm or rupture. Mi ld atherosclerotic calcification with ectasia and tortuosity of the thoracic aorta. Old burst fractu re of the L1 vertebral body with bony retropulsion is again noted. No mediastinal hematoma or lympha denopathy. Atherosclerotic calcification of the LAD. Several prominent left renal cysts. IMPRESSION: 1. Acute, traumatic, minimally displaced left scapular fracture, including intraarticular component. 2. Subacute, healing fractures of the lateral aspects of the left 6th and 7th ribs. 3. Late subacute healing fractures of the proximal aspects of the right 10th and 11th ribs. 4. Status post coronary artery bypass graft surgery is evidence for coronary atherosclerotic disease . 5. Old lumbar spine burst fracture of L1. REJI Louis POS: [facility]
[2018-06-06] MEDS ORDERED: ISOVUE-370 76%-LOCM 1 ML ONE (14:45)
[2018-06-06 16:58] LABS: Troponin I Less than 0.010 ng/mL (< 0.028)
[2018-06-06] MEDS ORDERED: Ondansetron ODT 4 MG TAB SL PRN (17:14)
[2018-06-06] MEDS ORDERED: Ondansetron HCl/PF 4 MG/2 ML Vial IVP PRN (17:14)
[2018-06-06] MEDS ORDERED: Acetaminophen 325 MG TAB PO PRN (17:14)
[2018-06-06] MEDS: Atorvastatin Calcium 40 MG TAB PO SCH (20:41)
[2018-06-06] MEDS: Donepezil HCl 5 MG TAB PO SCH (20:41)
[2018-06-06] MEDS: Losartan 25 MG TAB PO SCH (20:41)
[2018-06-06] MEDS: Tamsulosin HCl 0.4 MG CAP PO SCH (20:41)
[2018-06-06] MEDS: Carbidopa/Levodopa 25-250 mg Tablet PO SCH (20:45)
[2018-06-06] MEDS ORDERED: Prevnar 13-Val Conj/PF 0.5 ML SYRINGE IM ONE (21:00)
--- NOTE | 2018-06-07 02:40 | HP ---
DATE OF ADMISSION: 06/06/2018 ADMITTING PHYSICIAN: Benitez Fine M.D. HISTORY OF PRESENT ILLNESS: The patient is an 83-year-old male who has had a recent history of multi ple falls as well as coronary artery bypass graft surgery. He most recently was admitted to [facility] in April for drainage of his subdural hematoma which was done by the Neurosurgical Service . He had a prolonged period of recovery at the rehabilitation center. He was recently discharged ho me. He follow up with me in my office. At that time, I did inform the family, I felt the patient ne eded a significantly higher level of care. Nonetheless, he was placed back at [facility] with frequent sitters. Evidently, he was brought to the emergency room today. It was found that he may have accidentally ta carissa both his a.m. and p.m. medicines. He was seen and evaluated in the ER, found to be somewhat lethargic, but responsive, somewhat confuse d, but could be oriented with direction. He was seen and evaluated. CT scan of the brain was done w hich was normal. The patient was observed felt like the best course of action was to place him to [facility] for further observation as well as probable placement to care home facility. Interviewing the patient by myself, he was alert, he was oriented to person, place and time. It is n oted the patient is very soft spoken due to his previously Parkinson's disease as well as progressive dysphagia. Otherwise, no other medical complaints are noted. ALLERGIES: He has no known allergies. MEDICATIONS: Current medications are noted. PAST MEDICAL HISTORY: Positive for type 2 diabetes mellitus, hyperlipidemia, hypertension, Parkinson 's disease. PAST SURGICAL HISTORY: Positive for recent coronary artery bypass graft as well as craniotomy most r ecently. SOCIAL AND PERSONAL HISTORY: He is a . He does not drink nor does he smoke. He lives at [facility]. He does have a daughter who lives in [place]. REVIEW OF SYSTEMS: Gastrointestinal: Negative. Genitourinary: Negative. Cardiovascular: Otherwi se, negative. Neurological: Positive as above. Pulmonary: Otherwise negative. PHYSICAL EXAMINATION: VITAL SIGNS: Temperature 98.1, pulse 90, respirations 20, O2 sat 99%, blood pressure 165/84. GENERAL: He is alert, active, in no distress at this time. HEENT: Normocephalic. Sclerae and conjunctivae are clear. NECK: Supple, full range of motion, no masses, no bruits auscultated. Thyroid is midline without th yromegaly or thyroid masses. LUNGS: Clear. HEART: Reveals a regular rate and rhythm without murmurs, gallops or rubs. ABDOMEN: Soft, nontender, bowel sounds are active. No hepatosplenomegaly is noted. There is no clemente dence of rebound or guarding. EXTREMITIES: Shows any clubbing, edema. There are multiple bruises about the upper and lower extrem ities. There appears to be full range of motion in all extremities. LABORATORY DATA: His hemoglobin is 12.1, hematocrit 35.6, white blood count 8.3 with normal differen tial. Sodium 136, potassium 4.0, chloride 105, CO2 of 24, BUN 15, creatinine 0.79, glucose 177. Tro ponins x2 were negative. Toxicology screens were negative. CT scan of the brain is no acute intracr anial findings. X-ray of the elbow, no evidence of any acute injuries. X-ray of shoulders, this priyanka ears to be a possible fracture of the glenoid and unsure how old this actually is. Chest CT appears to be still shows a left scapular fracture, date unknown. It could be acute subacute fractures of the left 6th and 7th ribs as well as a right 10th and 11th ribs. IMPRESSION: This 83-year-old male who had an accidental unintentional overdose of medications. He h as also had also a history of multiple falls, who is probably not in particular good shape to care fo r himself at home anymore. PLAN: The patient will be admitted and we observed as well. We will continue his home medications. We will observe him through the night. We will probably need to put a case management consult and f or further placement. I seriously doubt the patient can live unassisted as he is at this time.
[2018-06-07] MEDS: Aspirin 81 mg Enteric Coated Tablet PO SCH (08:44)
[2018-06-07] MEDS: Losartan 25 MG TAB PO SCH ×2 (08:44→20:16)
[2018-06-07] MEDS: glipiZIDE 5 MG TAB PO SCH (08:44)
[2018-06-07] MEDS: Carbidopa/Levodopa 25-250 mg Tablet PO SCH ×3 (08:45→20:17)
--- NOTE | 2018-06-07 09:45 | PRG ---
DATE OF SERVICE: 06/07/2018 SUBJECTIVE: Mr. Thomson is doing well. He is alert, oriented, he has been interviewed by (00: 10) for possible placement. There are daughters at the bedside. PHYSICAL EXAMINATION: VITAL SIGNS: Blood pressure 167/81, temperature 98.3, O2 sat 97%. LUNGS: Clear. HEART: Reveals no murmur. NEUROLOGIC: He is alert and oriented x3. There is some pain to his left shoulder where his fracture d his left scapula. IMPRESSION: 1. Frequent falls. 2. Parkinson's disease. 3. Type 2 diabetes mellitus. PLAN: The patient should be placed at (00:41) soon. Continue current medications.
--- NOTE | 2018-06-07 14:39 | PQF ---
DATE: 06-07-18 ATTN: DR. PHILIP YOU Please exercise your independent, professional judgment in responding to the clarification form. Clinical indicators are provided on the bottom of this form for your review Please check appropriate box(s): [ ] Encephalopathy: Type: [ ] Acute [ ] Subacute [ ] Chronic Etiology: [ ] Metabolic [ ] Toxic [ ] Drug induced: [ ] Unspecified [ ] in the setting of underlying dementia [ ] Other (please specify) [ ] Transient Alteration of Awareness [ ] Other diagnosis [ ] Unable to determine In addition, please specify: Present on Admission (POA): [ ] Yes [ ] No [ ] Unable to determine For continuity of documentation, please document condition throughout progress notes and discharge summary. Thank You. CLINICAL INDICATORS - SIGNS / SYMPTOMS / LABS ER DX: AMS, FX ER: NORMALLY ALERT, ORIENTED AND TAKES CARE OF MOST OF ADLS. FATIGUE, LETHARGY, MALAISE H&P: HE WAS PLACED BACK AT [facility] AN INDEPENDENT LIVING SECTION WITH FREQUENT SITTERS. H&P: FOUND TO BE SOMEWHAT LETHARGIC, BUT RESPONSIVE, SOMEWHAT CONFUSED, BUT COULD BE ORIENTED WITH DIRECTION RISK FACTORS: ER: DM 2, HTN, HYPERLIPIDEMIA H&P: ACCIDENTAL UNINTENTIONAL OVERDOSE OF MEDICATIONS TREATMENTS: BRAIN CT 06-06-18 H&P: CASE MANAGEMENT FOR PLACEMENT (This form is maintained as a part of the permanent medical record) 2014 [employer]. All Rights Reserved [email or web address] [email or web address] Office: [phone] HELGA
[2018-06-07] MEDS: Donepezil HCl 5 MG TAB PO SCH (20:17)
[2018-06-07] MEDS: Atorvastatin Calcium 40 MG TAB PO SCH (20:17)
[2018-06-07] MEDS: Tamsulosin HCl 0.4 MG CAP PO SCH (20:17)
--- NOTE | 2018-06-08 07:50 | PRG ---
DATE OF SERVICE: 06/08/2018 Mr. Thomson is doing well. He complains of some left shoulder pain. PHYSICAL EXAMINATION: VITAL SIGNS: Temperature 99.3, BP 166/94. LUNGS: Clear. HEART: Reveals no murmur. IMPRESSION: 1. Multiple falls. 2. Parkinson's disease. 3. History of coronary artery disease. 4. Fracture, left scapula. PLAN: Place sling on left scapula. Continued observation. The patient is ready to discharge to an assisted living center.
[2018-06-08] MEDS: Carbidopa/Levodopa 25-250 mg Tablet PO SCH ×3 (08:36→20:18)
[2018-06-08] MEDS: Losartan 25 MG TAB PO SCH ×2 (08:36→20:18)
[2018-06-08] MEDS: glipiZIDE 5 MG TAB PO SCH (08:36)
[2018-06-08] MEDS: Aspirin 81 mg Enteric Coated Tablet PO SCH (08:36)
[2018-06-08] MEDS: Tamsulosin HCl 0.4 MG CAP PO SCH (20:18)
[2018-06-08] MEDS: Donepezil HCl 5 MG TAB PO SCH (20:19)
[2018-06-08] MEDS: Atorvastatin Calcium 40 MG TAB PO SCH (20:19)
--- NOTE | 2018-06-09 07:49 | PRG ---
DATE OF SERVICE: 06/09/2018 Mr. Thomson is doing well. It is my understanding he has been placed at [facility]. He has no complaints today. PHYSICAL EXAMINATION: VITAL SIGNS: Temperature 98.9, blood pressure 133/77, O2 sat 96%. LUNGS: Clear. HEART: Reveals no murmur. IMPRESSION: 1. He is stable. Due to multiple falls he has a fracture of his left shoulder. 2. Atherosclerotic coronary disease. 3. Type 2 diabetes mellitus. PLAN: Discharge to [facility] today.
[2018-06-09] MEDS: Losartan 25 MG TAB PO SCH ×2 (08:08→19:52)
[2018-06-09] MEDS: glipiZIDE 5 MG TAB PO SCH (08:08)
[2018-06-09] MEDS: Aspirin 81 mg Enteric Coated Tablet PO SCH (08:09)
[2018-06-09] MEDS: Carbidopa/Levodopa 25-250 mg Tablet PO SCH ×3 (08:09→19:52)
--- NOTE | 2018-06-09 14:17 | DIS ---
DATE OF ADMISSION: 06/06/2018 DATE OF DISCHARGE: 06/09/2018 DISCHARGE DIAGNOSES: 1. Multiple falls. 2. Fracture, left scapula. 3. Previous history of atherosclerotic coronary artery disease. 4. Previous history of subdural hematoma. patient suffered unintentional drug overdose, that is the cause of this admission. ADMITTING PHYSICIAN: Benitez Fine M.D. HOSPITAL SUMMARY: The patient is an 83-year-old male with an unintentional drug overdose with some r esultant mental status changes. He has also had a history of falls. He was found to have a fracture in left scapular upon admission. He was admitted to the hospital for further treatment of unintenti onal drug overdose. His mental status cleared. It became apparent that a disposition issue, mima montesinos could no longer live at his private residence at an apartment with unassisted living. He was disch arged to the [facility] [place]. DISCHARGE MEDICATIONS: Aspirin 81 mg daily, tamsulosin 0.4 mg daily, sertraline 50 mg daily, glipizi de 10 mg q.a.m., Aricept 5 mg daily, Lipitor 40 mg daily, losartan 25 mg b.i.d., and Sinemet 2 tablet s p.o. t.i.d. He will be discharged to [facility], followed up there and he will follow up with me in 3-4 weeks.
[2018-06-09] MEDS: Tamsulosin HCl 0.4 MG CAP PO SCH (19:53)
[2018-06-09] MEDS: Atorvastatin Calcium 40 MG TAB PO SCH (19:53)
[2018-06-09] MEDS: Donepezil HCl 5 MG TAB PO SCH (19:53)
[2018-06-09 21:02] VITALS: BP 152/84; TEMP 99.1
--- NOTE | 2018-06-10 21:46 | EKG ---
Test Reason : Blood Pressure : / mmHG Vent. Rate : 084 BPM Atrial Rate : 084 BPM P-R Int : 180 ms QRS Dur : 082 ms QT Int : 360 ms P-R-T Axes : 061 -56 -58 degrees QTc Int : 425 ms Normal sinus rhythm Left anterior fascicular block Inferior infarct , age undetermined Abnormal ECG Confirmed by BRUNILDA GODFREY M.D. ([id number]), research editor CLINTON ELIZONDO ([id number]) on 06/10/2018 9:46:24 PM Referred By: Confirmed By:BRUNILDA GODFREY M.D.
== END 2018-06-09 21:00 | DRG 918 ==
LOC: ERS 09:38 → T4-A 16:59
PROVIDERS: ADMIT Family Medicine; ATTEND Family Medicine
DX: T42.8X1A Poisoning by antiparkinsonism drugs and other central muscle-tone depressants, accidental (unintentional), initial encounter (principal); T44.6X1A Poisoning by alpha-adrenoreceptor antagonists, accidental (unintentional), initial encounter; T46.5X1A Poisoning by other antihypertensive drugs, accidental (unintentional), initial encounter; T44.1X1A Poisoning by other parasympathomimetics [cholinergics], accidental (unintentional), initial encounter; T46.6X1A Poisoning by antihyperlipidemic and antiarteriosclerotic drugs, accidental (unintentional), initial encounter; E11.9 Type 2 diabetes mellitus without complications; E78.5 Hyperlipidemia, unspecified; I10 Essential (primary) hypertension; G20 Parkinson's disease; I25.10 Atherosclerotic heart disease of native coronary artery without angina pectoris; S42.102A Fracture of unspecified part of scapula, left shoulder, initial encounter for closed fracture; R13.10 Dysphagia, unspecified; Z91.81 History of falling; Z95.1 Presence of aortocoronary bypass graft; W19.XXXA Unspecified fall, initial encounter
CPT/HCPCS: 36415; 36416; 70450; 71260; 80053; 80307; 81003; 82553; 83690; 84443; 84484; 85025; 93005; G8978-GP-CM; G8979-GP-CK

== ENCOUNTER 2019-02-16 16:47 | Emergency (ER) | payer MEDICARE ==
--- NOTE | 2019-02-16 17:53 | CT ---
CT HEAD WITHOUT IV CONTRAST COMPARISON: 06/06/2018 HISTORY: Unwitnessed fall at a long term. Trauma. TECHNIQUE: Axial CT imaging at 5 mm intervals from vertex through skull base without contrast FINDINGS: Again noted is diffuse parenchymal volume loss. The ventricular system remains mildly prominent in si ze, but this is stable when compared to the prior exam as well as on study on 02/14/2017. This may be attributable to greater central cerebral atrophy. Mild chronic small vessel ischemic changes are a gain seen. There is a low-density area seen within the darren, but artifact is extending through this region which may potentially account for this finding. There is no evidence of an acute infarction, hemorrhage, mass effect, or midline shift. Visualized paranasal sinuses are clear. A left frontal fanny hole is again seen. No calvarial fracture is seen. A linear lucency is again seen extending through the calvarium at the vertex to the right of midline stable from prior study which may represent a prominent vascular groove. IMPRESSION: 1. No acute intracranial abnormality demonstrated. 2. Stable chronic small vessel ischemic changes and cerebral volume loss. 3. Stable ventriculomegaly. 4. Low-density area seen centrally within the darren. Artifact is extending through this region which m ay account for this finding. However, if there is clinical concern for acute infarction, MRI would be more sensitive study of choice for evaluation of an acute infarction in this region.
[2019-02-16 17:55] LABS: #Eosinphils 0.3 thou/uL (0.0-0.7); #Lymphocytes 1.3 thou/uL (1.20-3.40); #Monocytes 0.6 thou/uL (0.11-0.59); #Neutrophils 5.3 thou/uL (1.40-6.50); %Basophils 0.6 % (0.0-1.0); %Eosinophils 3.5 % (0.0-10.0); %Lymphocytes 17.4 % (21.0-51.0); %Neutrophils 70.4 % (42.0-75.0); Hemoglobin 13.9 g/dL (14.0-18.0); Mean Corpuscular Volume 96.8 fL (78.0-98.0); Mean Platelet Volume 6.7 fL (7.4-10.4); Platelet Count 180 thou/uL (130-400); RBC Distribution Width 11.5 % (11.5-14.5); Red Blood Cell (RBC) Count 4.35 mill/uL (4.70-6.10); White Blood Cell (WBC) Count 7.5 thou/uL (4.8-10.8)
--- NOTE | 2019-02-16 17:56 | RAD ---
EXAM: XR Pelvis AP STANDARD PROVIDED CLINICAL HISTORY: Trauma. [facility] fall at [facility]. Patient claims of left hip pain. COMPARISON: 04/03/2018 FINDINGS: The hips are in external rotation limiting evaluation of the femoral necks. There is no grossly displ aced fracture seen, and no dislocation is seen. Degenerative changes are seen in the spine. Vascular calcifications are again seen within the iliac and femoral arteries. IMPRESSION: External rotation of the hips bilaterally which limits evaluation, but no displaced fracture is seen. If there is pain localized to either hip, dedicated views of that hip are recommended for further evaluation.
[2019-02-16 18:17] LABS: ALT (SGPT) Less than 7 U/L (8-55); AST (SGOT) 12 U/L (5-34); Albumin 4.3 g/dL (3.4-4.8); Alkaline Phosphatase 132 U/L (40-150); Anion Gap 10 mmol/L (10-20); BUN (Urea Nitrogen) 20 mg/dL (8.4-25.7); Bilirubin, Total 0.3 mg/dL (0.2-1.2); Calc. Creatinine Clearance 0 mL/min (70-130); Calcium 10.5 mg/dL (7.8-10.44); Carbon Dioxide 30 mmol/L (23-31); Chloride 103 mmol/L (98-107); Estimated GFR-MDRD Greater than 90; Globulin 2.6 g/dL (2.4-3.5); Glucose 106 mg/dL (83-110); Magnesium 2.4 mg/dL (1.6-2.6); Potassium 4.4 mmol/L (3.5-5.1); Protein, Total 6.9 g/dL (5.8-8.1); Sodium 139 mmol/L (136-145)
[2019-02-16] MEDS ORDERED: cloNIDine 0.1 MG TAB ONE (18:47)
[2019-02-16 18:57] LABS: Bilirubin Negative (Negative); Blood, Urine Negative (Negative); Clarity CLEAR (Clear); Glucose, Urine (Dipstick) Negative (Negative); Leukocyte Negative (Negative); Nitrite Negative (Negative); Protein, Urine (Dipstick) Negative (Neg-Trace); Specific Gravity, Urine 1.016 (1.002-1.036); Urobilinogen 0.2 mg/dL (0.2-1.0)
--- NOTE | 2019-02-16 21:09 | RAD ---
Exam: XR Hip Lt 4 View HISTORY: Trauma. Unwitnessed fall at shelter. Left hip pain. COMPARISON: None FINDINGS: Vascular calcifications are seen in the femoral arteries. No acute fracture, dislocation, or other acute osseous abnormality is identified. IMPRESSION: No acute osseous abnormality is identified.
--- NOTE | 2019-02-17 10:34 | EKG ---
Test Reason : Blood Pressure : / mmHG Vent. Rate : 058 BPM Atrial Rate : 300 BPM P-R Int : 000 ms QRS Dur : 090 ms QT Int : 444 ms P-R-T Axes : 052 -46 038 degrees QTc Int : 435 ms Sinus bradycardia Left anterior fascicular block Cannot rule out Inferior infarct , age undetermined Abnormal ECG Confirmed by RAJESH LEONARDO ([id number]), pictures editor HARINDER LATHAM ([id number]) on 02/17/2019 10:34:38 AM Referred By: Confirmed By:RAJESH LEONARDO
== END 2019-02-16 21:46 ==
LOC: ERS 16:47
DX: S09.90XA Unspecified injury of head, initial encounter (principal); S70.02XA Contusion of left hip, initial encounter; I10 Essential (primary) hypertension; E11.9 Type 2 diabetes mellitus without complications; E78.5 Hyperlipidemia, unspecified; Z79.899 Other long term (current) drug therapy; Z79.84 Long term (current) use of oral hypoglycemic drugs; Z79.82 Long term (current) use of aspirin; W19.XXXA Unspecified fall, initial encounter
CPT/HCPCS: 70450; 72170; 80053; 81003; 83735; 84484; 85025; 93005